=== PATIENT | male | born 1985 | race Two or more races ===

== ENCOUNTER 2016-05-14 14:01 | Inpatient (IN) | payer OTHER ==
[~2016-05-14] VITALS: Ht 172.7 cm; Wt 61.9 kg
[~2016-05-14 14:01] MED LIST: ANTIBIOTIC IV; BACI28.43 IV; BACL20TA PO; GABA800T2 PO; LEVO750T26 PO; OXYC5CAP4 PO; OXYC5TAB3 PO
[2016-05-14] MEDS ORDERED: SODIUM CHLORIDE FLUSH 10ML SYR IVF ONE (16:00)
[2016-05-14] MEDS ORDERED: CEFTRIAXONE PMX 1GM/50ML 50 ML IVPB ONE (16:00)
[2016-05-14 16:34] LABS: HEMOGLOBIN 14.2 g/dL (13.7-18.0)
[2016-05-14 16:43] LABS: ASPARTATE AMINO TRANSFERASE 31 U/L (15-37); BLOOD UREA NITROGEN 19 mg/dL (7-18)
[2016-05-14] MEDS ORDERED: CEFTRIAXONE PMX 1GM/50ML 50 ML ONE (17:09)
[2016-05-14] MEDS ORDERED: SODIUM CHLORIDE FLUSH 10ML SYR IVF PRN (17:30)
[2016-05-14] MEDS ORDERED: POLYETHYLENE GLYCOL 17 GM PACKET PO PRN (18:30)
[2016-05-14] MEDS ORDERED: ACETAMINOPHEN 325 MG TABLET PO PRN (18:30)
[2016-05-14] MEDS ORDERED: ENALAPRILAT 1.25 MG/ML, 2ML IVPush PRN (18:30)
[2016-05-14] MEDS ORDERED: VANCOMYCIN PER PHARMACY MC PRN (18:30)
[2016-05-14] MEDS ORDERED: ONDANSETRON 2MG/ML, 2ML IVP PRN (18:30)
[2016-05-14] MEDS ORDERED: BISACODYL 10 MG SUPP PR PRN (18:30)
[2016-05-14] MEDS ORDERED: VANCOMYCIN PMX 1GM/200ML 200 ML IV ONE (18:30)
[2016-05-14 19:03] LABS: C-REACTIVE PROTEIN, QUANT 1.3 mg/dL (0.02-0.49)
[2016-05-14] MEDS ORDERED: PIPERACILLIN/TAZO/PMX 3.375GM 50 ML ONE (20:04)
[2016-05-14] MEDS: PIPERACILLIN/TAZO/PMX 3.375GM 50 ML IV SCH (20:09)
[2016-05-14] MEDS ORDERED: PHARMACOKINETIC MONITORING MC PRN (21:00)
[2016-05-14] MEDS ORDERED: PHARMACOKINETIC CONSULTATION MC ONE (21:00)
[2016-05-14 21:18] VITALS: BP 100/54
[2016-05-14] MEDS: SODIUM CHLORIDE 0.9% 1,000 ML IV SCH (23:25)
[2016-05-14] MEDS: GABAPENTIN 400 MG CAPSULE PO SCH (23:26)
[2016-05-14] MEDS: BACLOFEN 10 MG TABLET PO SCH (23:26)
[2016-05-14] MEDS: VANCOMYCIN PMX 1GM/200ML 200 ML IV SCH (23:26)
[2016-05-14] MEDS: HEPARIN 5,000 UNITS/ML, 1ML SQ SCH (23:27)
[2016-05-15] MEDS: PIPERACILLIN/TAZO/PMX 3.375GM 50 ML IV SCH ×4 (02:08→20:08)
[2016-05-15 03:43] VITALS: BP 106/62
[2016-05-15 06:46] LABS: HEMOGLOBIN 13.6 g/dL (13.7-18.0)
[2016-05-15 06:59] LABS: ASPARTATE AMINO TRANSFERASE 21 U/L (15-37); BLOOD UREA NITROGEN 17 mg/dL (7-18)
[2016-05-15 07:26] VITALS: BP 103/55
[2016-05-15] MEDS: VANCOMYCIN PMX 1GM/200ML 200 ML IV SCH ×3 (07:44→23:11)
[2016-05-15] MEDS: HEPARIN 5,000 UNITS/ML, 1ML SQ SCH ×3 (07:45→22:56)
[2016-05-15] MEDS: GABAPENTIN 400 MG CAPSULE PO SCH ×3 (09:00→20:08)
[2016-05-15] MEDS: BACLOFEN 10 MG TABLET PO SCH ×3 (09:00→20:08)
[2016-05-15] MEDS: SENNA/DOCUSATE TABLET PO SCH (09:00)
[2016-05-15] MEDS ORDERED: LORazepam 2 MG/ML, 1ML IVPush ONE (10:00)
[2016-05-15] MEDS: SODIUM CHLORIDE 0.9% 1,000 ML IV SCH ×2 (11:06→20:08)
[2016-05-15 20:05] VITALS: BP 97/54
[2016-05-16 03:00] VITALS: BP 121/53
[2016-05-16] MEDS: PIPERACILLIN/TAZO/PMX 3.375GM 50 ML IV SCH ×4 (03:29→22:55)
[2016-05-16] MEDS: MORPHINE SULFATE 4 MG/ML, 1ML IVPush PRN (05:59)
[2016-05-16] MEDS: HEPARIN 5,000 UNITS/ML, 1ML SQ SCH ×3 (07:00→23:00)
[2016-05-16] MEDS: VANCOMYCIN PMX 1GM/200ML 200 ML IV SCH ×2 (07:51→14:49)
[2016-05-16] MEDS: SENNA/DOCUSATE TABLET PO SCH (07:54)
[2016-05-16 08:30] VITALS: BP 107/64
[2016-05-16] MEDS: GABAPENTIN 400 MG CAPSULE PO SCH ×3 (09:06→20:24)
[2016-05-16] MEDS: BACLOFEN 10 MG TABLET PO SCH ×3 (09:07→20:24)
[2016-05-16 13:54] VITALS: BP 119/56
[2016-05-16] MEDS: OXYcodone IR 5MG TABLET PO PRN (14:49)
[2016-05-16 19:30] VITALS: BP 125/72
[2016-05-17] MEDS: VANCOMYCIN PMX 1GM/200ML 200 ML IV SCH ×3 (00:02→16:16)
[2016-05-17 02:39] VITALS: BP 113/56
[2016-05-17] MEDS: OXYcodone IR 5MG TABLET PO PRN (02:44)
[2016-05-17] MEDS: PIPERACILLIN/TAZO/PMX 3.375GM 50 ML IV SCH ×3 (05:00→20:23)
[2016-05-17] MEDS: HEPARIN 5,000 UNITS/ML, 1ML SQ SCH ×2 (05:00→16:19)
[2016-05-17] MEDS: MORPHINE SULFATE 4 MG/ML, 1ML IVPush PRN (05:01)
[2016-05-17] MEDS: GABAPENTIN 400 MG CAPSULE PO SCH ×3 (07:23→21:22)
[2016-05-17] MEDS: BACLOFEN 10 MG TABLET PO SCH ×3 (07:23→21:22)
[2016-05-17] MEDS: SENNA/DOCUSATE TABLET PO SCH (07:24)
[2016-05-17 08:01] VITALS: BP 114/69
[2016-05-17] MEDS ORDERED: MIDAZOLAM 1 MG/ML, 5ML ONE (10:53)
[2016-05-17] MEDS ORDERED: FENTANYL PF 100 MCG/2ML ONE (10:53)
[2016-05-17] MEDS ORDERED: GADOBUTROL 7.5 MMOL/7.5 ML PFS ONE (13:27)
[2016-05-17 14:02] VITALS: BP 111/71
[2016-05-17] MEDS: MUPIROCIN OINT 2%, 22GM TP SCH ×3 (14:15→21:22)
[2016-05-17 20:00] VITALS: BP 100/60
[2016-05-18] MEDS: OXYcodone IR 5MG TABLET PO PRN ×2 (00:05→05:31)
[2016-05-18] MEDS: VANCOMYCIN PMX 1GM/200ML 200 ML IV SCH ×3 (00:05→16:45)
[2016-05-18] MEDS: HEPARIN 5,000 UNITS/ML, 1ML SQ SCH ×3 (00:06→16:44)
[2016-05-18 02:20] VITALS: BP 111/68
[2016-05-18] MEDS: PIPERACILLIN/TAZO/PMX 3.375GM 50 ML IV SCH ×4 (02:22→20:08)
[2016-05-18 07:51] VITALS: BP 122/83
[2016-05-18] MEDS: SENNA/DOCUSATE TABLET PO SCH (07:57)
[2016-05-18] MEDS: GABAPENTIN 400 MG CAPSULE PO SCH ×3 (08:01→20:09)
[2016-05-18] MEDS: BACLOFEN 10 MG TABLET PO SCH ×3 (08:01→20:09)
[2016-05-18] MEDS: MUPIROCIN OINT 2%, 22GM TP SCH ×3 (08:02→20:08)
[2016-05-18 13:47] VITALS: BP 138/81
[2016-05-19] MEDS: HEPARIN 5,000 UNITS/ML, 1ML SQ SCH ×3 (01:14→16:49)
[2016-05-19] MEDS: VANCOMYCIN PMX 1GM/200ML 200 ML IV SCH ×3 (01:15→18:44)
[2016-05-19 01:16] VITALS: BP 139/59
[2016-05-19] MEDS: PIPERACILLIN/TAZO/PMX 3.375GM 50 ML IV SCH ×4 (02:39→20:42)
[2016-05-19] MEDS: OXYcodone IR 5MG TABLET PO PRN (04:57)
[2016-05-19 07:21] VITALS: BP 118/77
[2016-05-19] MEDS: BACLOFEN 10 MG TABLET PO SCH ×3 (08:57→20:38)
[2016-05-19] MEDS: GABAPENTIN 400 MG CAPSULE PO SCH ×3 (08:58→20:38)
[2016-05-19] MEDS: SENNA/DOCUSATE TABLET PO SCH (09:00)
[2016-05-19] MEDS: LACTOBACILLUS CHEW TABLET PO SCH ×3 (10:21→20:38)
[2016-05-19] MEDS: MUPIROCIN OINT 2%, 22GM TP SCH ×3 (10:22→20:46)
[2016-05-19 14:15] VITALS: BP 132/85
[2016-05-19 19:33] VITALS: BP 143/78
[2016-05-20] MEDS: PIPERACILLIN/TAZO/PMX 3.375GM 50 ML IV SCH ×2 (01:09→08:19)
[2016-05-20] MEDS: HEPARIN 5,000 UNITS/ML, 1ML SQ SCH ×3 (01:10→17:12)
[2016-05-20 01:15] VITALS: BP 127/72
[2016-05-20] MEDS: VANCOMYCIN PMX 1GM/200ML 200 ML IV SCH ×2 (02:15→10:05)
[2016-05-20] MEDS: OXYcodone IR 5MG TABLET PO PRN (04:02)
[2016-05-20 07:48] VITALS: BP 118/69
[2016-05-20] MEDS: GABAPENTIN 400 MG CAPSULE PO SCH ×3 (08:20→21:55)
[2016-05-20] MEDS: BACLOFEN 10 MG TABLET PO SCH ×3 (08:20→21:55)
[2016-05-20] MEDS: LACTOBACILLUS CHEW TABLET PO SCH ×3 (08:20→21:55)
[2016-05-20] MEDS: MUPIROCIN OINT 2%, 22GM TP SCH ×3 (08:21→21:00)
[2016-05-20] MEDS: SENNA/DOCUSATE TABLET PO SCH (08:23)
[2016-05-20] MEDS ORDERED: CEFAZOLIN PMX 1GM/50ML 50 ML IV SCH (10:30)
[2016-05-20] MEDS ORDERED: CEFAZOLIN PMX 2GM/100ML 100 ML IV SCH (14:00)
[2016-05-20] MEDS: CEFAZOLIN PMX 2GM/50ML 50 ML IV SCH ×2 (14:46→21:55)
[2016-05-20 14:48] VITALS: BP 135/94
[2016-05-20 18:40] VITALS: BP 120/69
[2016-05-21] MEDS: HEPARIN 5,000 UNITS/ML, 1ML SQ SCH ×4 (01:08→22:08)
[2016-05-21] MEDS: CEFAZOLIN PMX 2GM/50ML 50 ML IV SCH ×3 (05:32→22:08)
[2016-05-21 05:35] VITALS: BP 117/74
[2016-05-21 07:26] VITALS: BP 125/73
[2016-05-21] MEDS: LACTOBACILLUS CHEW TABLET PO SCH ×3 (08:11→22:09)
[2016-05-21] MEDS: BACLOFEN 10 MG TABLET PO SCH ×3 (08:11→22:09)
[2016-05-21] MEDS: GABAPENTIN 400 MG CAPSULE PO SCH ×3 (08:11→22:09)
[2016-05-21] MEDS: SENNA/DOCUSATE TABLET PO SCH (08:12)
[2016-05-21] MEDS: MUPIROCIN OINT 2%, 22GM TP SCH ×3 (08:14→22:09)
[2016-05-21 14:26] VITALS: BP 119/84
[2016-05-21 21:07] VITALS: BP 116/69
[2016-05-22 01:31] VITALS: BP 129/87
[2016-05-22 04:58] LABS: HEMOGLOBIN 14.2 g/dL (13.7-18.0)
[2016-05-22 05:11] LABS: BLOOD UREA NITROGEN 15 mg/dL (7-18)
[2016-05-22 05:17] LABS: ASPARTATE AMINO TRANSFERASE 21 U/L (15-37)
[2016-05-22] MEDS: CEFAZOLIN PMX 2GM/50ML 50 ML IV SCH ×3 (05:38→20:49)
[2016-05-22 07:45] VITALS: BP 138/62
[2016-05-22] MEDS: LACTOBACILLUS CHEW TABLET PO SCH ×3 (07:54→20:48)
[2016-05-22] MEDS: BACLOFEN 10 MG TABLET PO SCH ×3 (07:54→20:48)
[2016-05-22] MEDS: SENNA/DOCUSATE TABLET PO SCH (07:55)
[2016-05-22] MEDS: GABAPENTIN 400 MG CAPSULE PO SCH ×3 (07:55→20:48)
[2016-05-22] MEDS: HEPARIN 5,000 UNITS/ML, 1ML SQ SCH ×3 (07:55→20:50)
[2016-05-22] MEDS: MUPIROCIN OINT 2%, 22GM TP SCH ×3 (07:55→20:56)
[2016-05-22 13:52] VITALS: BP 128/70
[2016-05-22 20:46] VITALS: BP 134/90
[2016-05-23 01:07] VITALS: BP 123/77
[2016-05-23] MEDS: HEPARIN 5,000 UNITS/ML, 1ML SQ SCH ×3 (06:13→23:19)
[2016-05-23] MEDS: CEFAZOLIN PMX 2GM/50ML 50 ML IV SCH ×2 (06:13→15:41)
[2016-05-23] MEDS: SENNA/DOCUSATE TABLET PO SCH (09:09)
[2016-05-23] MEDS: LACTOBACILLUS CHEW TABLET PO SCH ×3 (09:09→23:19)
[2016-05-23] MEDS: GABAPENTIN 400 MG CAPSULE PO SCH ×3 (09:10→23:19)
[2016-05-23] MEDS: BACLOFEN 10 MG TABLET PO SCH ×3 (09:10→23:19)
[2016-05-23 09:37] VITALS: BP 140/84
[2016-05-23] MEDS: MUPIROCIN OINT 2%, 22GM TP SCH ×3 (11:00→23:50)
[2016-05-23 16:40] VITALS: BP 129/74
[2016-05-23] MEDS ORDERED: ENALAPRILAT 1.25 MG/ML, 2ML IVPush PRN (18:29)
[2016-05-23 19:32] VITALS: BP 124/68
[2016-05-23] MEDS: ERTAPENEM 1 GM in SODIUM CHLORIDE 0.9% 50 ML IV SCH (20:25)
[2016-05-24 01:34] VITALS: BP 121/83
[2016-05-24 07:49] VITALS: BP 115/64
[2016-05-24] MEDS: SENNA/DOCUSATE TABLET PO SCH (09:16)
[2016-05-24] MEDS: BACLOFEN 10 MG TABLET PO SCH ×3 (09:17→20:35)
[2016-05-24] MEDS: GABAPENTIN 400 MG CAPSULE PO SCH ×3 (09:17→20:35)
[2016-05-24] MEDS: LACTOBACILLUS CHEW TABLET PO SCH ×3 (09:17→20:35)
[2016-05-24] MEDS: HEPARIN 5,000 UNITS/ML, 1ML SQ SCH ×2 (09:27→15:46)
[2016-05-24] MEDS: MUPIROCIN OINT 2%, 22GM TP SCH ×3 (09:28→20:35)
[2016-05-24 14:04] VITALS: BP 136/86
[2016-05-24 19:41] VITALS: BP 127/74
[2016-05-24] MEDS: ERTAPENEM 1 GM in SODIUM CHLORIDE 0.9% 50 ML IV SCH (20:34)
[2016-05-25] MEDS: HEPARIN 5,000 UNITS/ML, 1ML SQ SCH ×3 (00:49→16:12)
[2016-05-25 01:16] VITALS: BP 121/68
[2016-05-25 07:41] VITALS: BP 130/81
[2016-05-25] MEDS: MUPIROCIN OINT 2%, 22GM TP SCH ×2 (08:31→16:12)
[2016-05-25] MEDS: SENNA/DOCUSATE TABLET PO SCH (08:31)
[2016-05-25] MEDS: BACLOFEN 10 MG TABLET PO SCH ×2 (08:31→16:12)
[2016-05-25] MEDS: LACTOBACILLUS CHEW TABLET PO SCH ×2 (08:31→16:12)
[2016-05-25] MEDS: GABAPENTIN 400 MG CAPSULE PO SCH ×2 (08:31→16:12)
[2016-05-25 14:14] VITALS: BP 135/74
[2016-05-25] MEDS ORDERED: ACID1TAB7 PO (16:36)
[2016-05-25] MEDS ORDERED: ERTA1VIA IV (16:36)
[2016-05-25] MEDS: ERTAPENEM 1 GM in SODIUM CHLORIDE 0.9% 50 ML IV SCH (17:39)
== END 2016-05-25 19:45 | disposition home IV services (08) | DRG 540 ==
LOC: ED 16:41 → EDIP 17:18 → 3NE 20:25
PROC: 0T9B70Z Drainage of Bladder with Drainage Device, Via Natural or Artificial Opening (ICD-10-PCS; principal; 2016-05-14)
PROC: 02HV33Z Insertion of Infusion Device into Superior Vena Cava, Percutaneous Approach (ICD-10-PCS; 2016-05-23)
PROC: B5181ZA Fluoroscopy of Superior Vena Cava using Low Osmolar Contrast, Guidance (ICD-10-PCS; 2016-05-23)
DX: M86.172 Other acute osteomyelitis, left ankle and foot (principal); L03.116 Cellulitis of left lower limb; M86.171 Other acute osteomyelitis, right ankle and foot; L03.115 Cellulitis of right lower limb; G82.20 Paraplegia, unspecified; D63.8 Anemia in other chronic diseases classified elsewhere; L97.519 Non-pressure chronic ulcer of other part of right foot with unspecified severity; L97.529 Non-pressure chronic ulcer of other part of left foot with unspecified severity; Z89.421 Acquired absence of other right toe(s); Z86.14 Personal history of Methicillin resistant Staphylococcus aureus infection; B95.0 Streptococcus, group A, as the cause of diseases classified elsewhere; K52.9 Noninfective gastroenteritis and colitis, unspecified; B95.7 Other staphylococcus as the cause of diseases classified elsewhere; F17.210 Nicotine dependence, cigarettes, uncomplicated; F12.90 Cannabis use, unspecified, uncomplicated; Z22.321 Carrier or suspected carrier of Methicillin susceptible Staphylococcus aureus; Z91.19 Patient's noncompliance with other medical treatment and regimen; Z90.49 Acquired absence of other specified parts of digestive tract
CPT/HCPCS: 36415; 36569; 76937; 77001; 80053; 80061; 80202; 81001; 82565; 83036; 83605; 83735; 84439; 84443; 85025; 85651; 86140; 87040; 87070; 87077; 87086; 87147; 87186; 87205; 87324; 96365; 99156; 99157; A9585; J0690; J0696; J1335; J1644; J2250; J2543; J3010; J3370; C1751; J7030

== ENCOUNTER 2016-12-29 10:59 | Emergency (ER) | payer OTHER ==
[~2016-12-29] VITALS: Ht 172.7 cm; Wt 65.0 kg
[~2016-12-29 10:59] MED LIST changes: +ACID1TAB7 PO; +ERTA1VIA IV; +OXYC5CAP2 PO; -OXYC5CAP4 PO
[2016-12-29 11:00] VITALS: BP 123/75
[2016-12-29 11:54] LABS: HEMATOCRIT 44.3 % (39.2-51.8); HEMOGLOBIN 14.8 g/dL (13.7-18.0); WHITE BLOOD COUNT 7.9 x10^3/uL (3.4-10)
[2016-12-29 12:03] LABS: BLOOD UREA NITROGEN 14 mg/dL (7-18)
== END 2016-12-29 14:30 | disposition home or self-care (01) ==
LOC: ED 14:18
DX: S73.005A Unspecified dislocation of left hip, initial encounter (principal); M16.12 Unilateral primary osteoarthritis, left hip; Z99.3 Dependence on wheelchair; X58.XXXA Exposure to other specified factors, initial encounter; Y93.89 Activity, other specified; Y92.89 Other specified places as the place of occurrence of the external cause; Y99.8 Other external cause status
CPT/HCPCS: 36415; 72072; 72110; 72190; 80048; 82040; 85025; 85651; 86141; 99285

== ENCOUNTER 2018-02-15 13:18 | Emergency (ER) | payer MEDICARE, OTHER ==
[~2018-02-15] VITALS: Ht 172.7 cm; Wt 66.0 kg
[2018-02-15] MEDS ORDERED: ONDANSETRON 2MG/ML, 2ML ONE (13:58)
[2018-02-15] MEDS ORDERED: MORPHINE SULFATE 4 MG/ML, 1ML ONE (13:59)
[2018-02-15] MEDS ORDERED: ONDANSETRON 2MG/ML, 2ML IVPush ONE (14:00)
[2018-02-15] MEDS ORDERED: MORPHINE SULFATE 4 MG/ML, 1ML IVPush PRN (14:00)
[2018-02-15 14:15] LABS: BASOPHILS # (AUTO) 0.05 x10^3/uL (0-0.1); BASOPHILS % (AUTO) 1 % (0-1); EOSINOPHILS # (AUTO) 0.15 x10^3/uL (0-0.4); EOSINOPHILS % (AUTO) 2 % (1-7); LYMPHOCYTES # (AUTO) 1.84 x10^3/uL (1-3.4); LYMPHOCYTES % (AUTO) 28 % (22-44); MD NO; MEAN CORPUSCULAR HEMOGLOBIN 28.8 pg (27.5-34.5); MEAN CORPUSCULAR HGB CONC 32.9 g/dL (33.2-36.2); MEAN CORPUSCULAR VOLUME 87.3 fL (81-97); MEAN PLATELET VOLUME 9.2 fL (7.4-10.4); MONOCYTES # (AUTO) 0.43 x10^3/uL (0.2-0.8); MONOCYTES % (AUTO) 7 % (2-9); NEUTROPHILS # (AUTO) 4.04 x10^3/uL (1.8-6.8); NEUTROPHILS % (AUTO) 62 % (42-75); PLATELET COUNT 253 x10^3/uL (130-400); RED CELL DISTRIBUTION WIDTH 14.1 % (9.4-14.8)
[2018-02-15 14:22] LABS: ALANINE AMINOTRANSFERASE 27 U/L (12-78); ALBUMIN 3.6 g/dL (3.4-5.0); ANION GAP 9 mmol/L (5-15); C-REACTIVE PROTEIN, QUANT 0.55 mg/dL (0.02-0.49); CALCIUM 8.5 mg/dL (8.5-10.1); CHLORIDE 107 mmol/L (98-107); CREATININE 0.64 mg/dL (0.7-1.3)
[2018-02-15 14:25] LABS: ALKALINE PHOSPHATASE 89 U/L (45-117); BILIRUBIN,TOTAL 0.2 mg/dL (0.2-1.0); TOTAL PROTEIN 7.1 g/dL (6.4-8.2)
[2018-02-15 15:14] LABS: HCT (SEDRATE) 41.9 % (39.2-51.8)
[2018-02-15 15:28] LABS: MICROSCOPIC NOT IND
[2018-02-15 15:32] LABS: CULTURE INDICATED? NO
[2018-02-15 15:55] VITALS: BP 105/52
[2018-02-15] MEDS ORDERED: BACITRACIN ZINC OINT 500U/GM, 0.9 GM ONE (16:17)
== END 2018-02-15 17:17 | disposition home or self-care (01) ==
LOC: ED 17:10
DX: L08.89 Other specified local infections of the skin and subcutaneous tissue (principal); Z90.49 Acquired absence of other specified parts of digestive tract; Z86.14 Personal history of Methicillin resistant Staphylococcus aureus infection
CPT/HCPCS: 36415; 73630; 80053; 81003; 83605; 84145; 85025; 85651; 86140; 87040; 96374; 96375; 99284; J2405

== ENCOUNTER 2018-04-18 14:05 | Outpatient (CLI) | payer MEDICARE ==
[~2018-04-18 14:05] MED LIST changes: +CIPR750T PO; -GABA800T2 PO; +GABA800T5 PO; +IBUP-1222 PO; +RIFA300C3 PO; +SULF1TAB24 PO
== END 2018-04-18 23:59 | disposition home or self-care (01) ==
LOC: WOUND 14:05
PROVIDERS: ATTEND Nurse Practitioner Family
DX: L97.522 Non-pressure chronic ulcer of other part of left foot with fat layer exposed (principal); M86.072 Acute hematogenous osteomyelitis, left ankle and foot; M86.271 Subacute osteomyelitis, right ankle and foot; A49.02 Methicillin resistant Staphylococcus aureus infection, unspecified site; F12.10 Cannabis abuse, uncomplicated; G82.20 Paraplegia, unspecified; F17.210 Nicotine dependence, cigarettes, uncomplicated; M86.671 Other chronic osteomyelitis, right ankle and foot; Z89.412 Acquired absence of left great toe; Z90.49 Acquired absence of other specified parts of digestive tract
CPT/HCPCS: 97597; 97598; 99215

== ENCOUNTER 2018-05-05 13:04 | Outpatient (CLI) | payer MEDICARE | END 2018-05-05 23:59 | disposition home or self-care (01) | LOC: WOUND 13:04 | PROVIDERS: ATTEND Family Medicine | DX: L97.512 Non-pressure chronic ulcer of other part of right foot with fat layer exposed (principal); L97.522 Non-pressure chronic ulcer of other part of left foot with fat layer exposed; L97.421 Non-pressure chronic ulcer of left heel and midfoot limited to breakdown of skin; M86.072 Acute hematogenous osteomyelitis, left ankle and foot; M86.671 Other chronic osteomyelitis, right ankle and foot; A49.02 Methicillin resistant Staphylococcus aureus infection, unspecified site; L84 Corns and callosities; F12.10 Cannabis abuse, uncomplicated; G82.20 Paraplegia, unspecified; F17.210 Nicotine dependence, cigarettes, uncomplicated; Z90.49 Acquired absence of other specified parts of digestive tract; Z89.421 Acquired absence of other right toe(s); Z89.412 Acquired absence of left great toe | CPT/HCPCS: 97597 ==

== ENCOUNTER → 2018-05-12 | Outpatient (CLI) | payer MEDICARE | END | disposition home or self-care (01) | LOC: WOUND 14:00 | PROVIDERS: ATTEND Family Medicine | DX: L97.515 Non-pressure chronic ulcer of other part of right foot with muscle involvement without evidence of necrosis (principal); L97.525 Non-pressure chronic ulcer of other part of left foot with muscle involvement without evidence of necrosis; A49.02 Methicillin resistant Staphylococcus aureus infection, unspecified site; M86.271 Subacute osteomyelitis, right ankle and foot; M86.072 Acute hematogenous osteomyelitis, left ankle and foot; L84 Corns and callosities; G82.20 Paraplegia, unspecified; F12.10 Cannabis abuse, uncomplicated; F17.210 Nicotine dependence, cigarettes, uncomplicated; M86.671 Other chronic osteomyelitis, right ankle and foot; Z89.412 Acquired absence of left great toe; Z89.421 Acquired absence of other right toe(s); Z90.49 Acquired absence of other specified parts of digestive tract | CPT/HCPCS: 11043; 11046 ==

== ENCOUNTER → 2018-05-19 | Outpatient (CLI) | payer MEDICARE | END | disposition home or self-care (01) | LOC: WOUND 13:03 | PROVIDERS: ATTEND Family Medicine | DX: L97.525 Non-pressure chronic ulcer of other part of left foot with muscle involvement without evidence of necrosis (principal); L97.512 Non-pressure chronic ulcer of other part of right foot with fat layer exposed; M86.072 Acute hematogenous osteomyelitis, left ankle and foot; M86.271 Subacute osteomyelitis, right ankle and foot; A49.02 Methicillin resistant Staphylococcus aureus infection, unspecified site; L84 Corns and callosities; G82.20 Paraplegia, unspecified; F12.10 Cannabis abuse, uncomplicated; F17.210 Nicotine dependence, cigarettes, uncomplicated; Z89.412 Acquired absence of left great toe; Z89.421 Acquired absence of other right toe(s); Z90.49 Acquired absence of other specified parts of digestive tract | CPT/HCPCS: 97597 ==

== ENCOUNTER 2018-05-26 14:00 | Outpatient (CLI) | payer MEDICARE | END 2018-05-26 23:59 | disposition home or self-care (01) | LOC: WOUND 14:00 | PROVIDERS: ATTEND Family Medicine | DX: L97.525 Non-pressure chronic ulcer of other part of left foot with muscle involvement without evidence of necrosis (principal); L97.512 Non-pressure chronic ulcer of other part of right foot with fat layer exposed; A49.02 Methicillin resistant Staphylococcus aureus infection, unspecified site; M86.072 Acute hematogenous osteomyelitis, left ankle and foot; M86.271 Subacute osteomyelitis, right ankle and foot; L84 Corns and callosities; G82.20 Paraplegia, unspecified; M86.171 Other acute osteomyelitis, right ankle and foot; F17.210 Nicotine dependence, cigarettes, uncomplicated; Z89.412 Acquired absence of left great toe; Z89.421 Acquired absence of other right toe(s); Z90.49 Acquired absence of other specified parts of digestive tract | CPT/HCPCS: 97597 ==

== ENCOUNTER 2018-06-02 14:12 | Outpatient (CLI) | payer MEDICARE | END 2018-06-02 23:59 | disposition home or self-care (01) | LOC: WOUND 14:12 | PROVIDERS: ATTEND Family Medicine | DX: L97.525 Non-pressure chronic ulcer of other part of left foot with muscle involvement without evidence of necrosis (principal); L97.512 Non-pressure chronic ulcer of other part of right foot with fat layer exposed; M86.072 Acute hematogenous osteomyelitis, left ankle and foot; M86.271 Subacute osteomyelitis, right ankle and foot; A49.02 Methicillin resistant Staphylococcus aureus infection, unspecified site; L84 Corns and callosities; G82.20 Paraplegia, unspecified; M86.671 Other chronic osteomyelitis, right ankle and foot; F12.10 Cannabis abuse, uncomplicated; F17.210 Nicotine dependence, cigarettes, uncomplicated; Z89.412 Acquired absence of left great toe; Z89.421 Acquired absence of other right toe(s); Z90.49 Acquired absence of other specified parts of digestive tract | CPT/HCPCS: 11043; 97597 ==

== ENCOUNTER → 2018-06-09 | Outpatient (CLI) | payer MEDICARE | END | disposition home or self-care (01) | LOC: WOUND 13:50 | PROVIDERS: ATTEND Family Medicine | DX: L97.525 Non-pressure chronic ulcer of other part of left foot with muscle involvement without evidence of necrosis (principal); L97.512 Non-pressure chronic ulcer of other part of right foot with fat layer exposed; M86.072 Acute hematogenous osteomyelitis, left ankle and foot; M86.271 Subacute osteomyelitis, right ankle and foot; A49.02 Methicillin resistant Staphylococcus aureus infection, unspecified site; L84 Corns and callosities; G82.20 Paraplegia, unspecified; M86.171 Other acute osteomyelitis, right ankle and foot; F12.10 Cannabis abuse, uncomplicated; F17.210 Nicotine dependence, cigarettes, uncomplicated; Z89.421 Acquired absence of other right toe(s); Z89.412 Acquired absence of left great toe; Z90.49 Acquired absence of other specified parts of digestive tract | CPT/HCPCS: 97597 ==

== ENCOUNTER → 2018-06-16 | Outpatient (CLI) | payer MEDICARE | END | disposition home or self-care (01) | LOC: WOUND 15:03 | PROVIDERS: ATTEND Family Medicine | DX: Z02.9 Encounter for administrative examinations, unspecified (principal) ==

== ENCOUNTER → 2018-06-23 | Outpatient (CLI) | payer MEDICARE | END | disposition home or self-care (01) | LOC: WOUND 14:44 | PROVIDERS: ATTEND Family Medicine | DX: L97.512 Non-pressure chronic ulcer of other part of right foot with fat layer exposed (principal); L97.522 Non-pressure chronic ulcer of other part of left foot with fat layer exposed; M86.072 Acute hematogenous osteomyelitis, left ankle and foot; M86.271 Subacute osteomyelitis, right ankle and foot; A49.02 Methicillin resistant Staphylococcus aureus infection, unspecified site; L84 Corns and callosities; G82.20 Paraplegia, unspecified; M86.171 Other acute osteomyelitis, right ankle and foot; F12.10 Cannabis abuse, uncomplicated; F17.210 Nicotine dependence, cigarettes, uncomplicated; Z89.421 Acquired absence of other right toe(s); Z89.412 Acquired absence of left great toe; Z90.49 Acquired absence of other specified parts of digestive tract | CPT/HCPCS: 97597 ==

== ENCOUNTER 2018-06-30 13:57 | Outpatient (CLI) | payer MEDICARE | END 2018-06-30 23:59 | disposition home or self-care (01) | LOC: WOUND 13:57 | PROVIDERS: ATTEND Family Medicine | DX: L97.525 Non-pressure chronic ulcer of other part of left foot with muscle involvement without evidence of necrosis (principal); L97.512 Non-pressure chronic ulcer of other part of right foot with fat layer exposed; M86.072 Acute hematogenous osteomyelitis, left ankle and foot; M86.271 Subacute osteomyelitis, right ankle and foot; A49.02 Methicillin resistant Staphylococcus aureus infection, unspecified site; M86.171 Other acute osteomyelitis, right ankle and foot; L84 Corns and callosities; G82.20 Paraplegia, unspecified; F12.10 Cannabis abuse, uncomplicated; F17.210 Nicotine dependence, cigarettes, uncomplicated; Z89.412 Acquired absence of left great toe; Z89.422 Acquired absence of other left toe(s); Z90.49 Acquired absence of other specified parts of digestive tract | CPT/HCPCS: 97597 ==

== ENCOUNTER 2018-07-07 13:20 | Outpatient (CLI) | payer MEDICARE | END 2018-07-07 23:59 | disposition home or self-care (01) | LOC: WOUND 13:20 | PROVIDERS: ATTEND Family Medicine | DX: L97.522 Non-pressure chronic ulcer of other part of left foot with fat layer exposed (principal); L97.512 Non-pressure chronic ulcer of other part of right foot with fat layer exposed; M86.072 Acute hematogenous osteomyelitis, left ankle and foot; M86.271 Subacute osteomyelitis, right ankle and foot; A49.02 Methicillin resistant Staphylococcus aureus infection, unspecified site; M86.171 Other acute osteomyelitis, right ankle and foot; L84 Corns and callosities; G82.20 Paraplegia, unspecified; F12.10 Cannabis abuse, uncomplicated; F17.210 Nicotine dependence, cigarettes, uncomplicated; Z89.412 Acquired absence of left great toe; Z89.422 Acquired absence of other left toe(s); Z90.49 Acquired absence of other specified parts of digestive tract | CPT/HCPCS: 97597 ==

== ENCOUNTER → 2018-07-21 | Outpatient (CLI) | payer MEDICARE | END | disposition home or self-care (01) | LOC: WOUND 13:06 | PROVIDERS: ATTEND Family Medicine | DX: L97.525 Non-pressure chronic ulcer of other part of left foot with muscle involvement without evidence of necrosis (principal); L97.512 Non-pressure chronic ulcer of other part of right foot with fat layer exposed; A49.02 Methicillin resistant Staphylococcus aureus infection, unspecified site; M86.072 Acute hematogenous osteomyelitis, left ankle and foot; M86.271 Subacute osteomyelitis, right ankle and foot; L84 Corns and callosities; G82.20 Paraplegia, unspecified; M86.9 Osteomyelitis, unspecified; F17.210 Nicotine dependence, cigarettes, uncomplicated; Z89.412 Acquired absence of left great toe; Z89.422 Acquired absence of other left toe(s); Z90.49 Acquired absence of other specified parts of digestive tract; Z89.421 Acquired absence of other right toe(s) | CPT/HCPCS: 97597 ==

== ENCOUNTER → 2018-08-04 | Outpatient (CLI) | payer MEDICARE | END | disposition home or self-care (01) | LOC: WOUND 10:49 | PROVIDERS: ATTEND Family Medicine | DX: L97.512 Non-pressure chronic ulcer of other part of right foot with fat layer exposed (principal); L97.522 Non-pressure chronic ulcer of other part of left foot with fat layer exposed; L89.519 Pressure ulcer of right ankle, unspecified stage; L97.311 Non-pressure chronic ulcer of right ankle limited to breakdown of skin; A49.02 Methicillin resistant Staphylococcus aureus infection, unspecified site; M86.072 Acute hematogenous osteomyelitis, left ankle and foot; M86.271 Subacute osteomyelitis, right ankle and foot; M86.171 Other acute osteomyelitis, right ankle and foot; G82.20 Paraplegia, unspecified; F12.10 Cannabis abuse, uncomplicated; F17.210 Nicotine dependence, cigarettes, uncomplicated; Z89.412 Acquired absence of left great toe; Z89.422 Acquired absence of other left toe(s); Z89.421 Acquired absence of other right toe(s); Z90.49 Acquired absence of other specified parts of digestive tract | CPT/HCPCS: 97597 ==

== ENCOUNTER → 2018-08-18 | Outpatient (CLI) | payer MEDICARE | END | disposition home or self-care (01) | LOC: WOUND 10:54 | PROVIDERS: ATTEND Internal Medicine Cardiovascular Disease | DX: L97.512 Non-pressure chronic ulcer of other part of right foot with fat layer exposed (principal); L97.522 Non-pressure chronic ulcer of other part of left foot with fat layer exposed; L97.311 Non-pressure chronic ulcer of right ankle limited to breakdown of skin; M86.271 Subacute osteomyelitis, right ankle and foot; M86.072 Acute hematogenous osteomyelitis, left ankle and foot; A49.02 Methicillin resistant Staphylococcus aureus infection, unspecified site; M86.171 Other acute osteomyelitis, right ankle and foot; G82.20 Paraplegia, unspecified; F12.10 Cannabis abuse, uncomplicated; F17.210 Nicotine dependence, cigarettes, uncomplicated; Z89.412 Acquired absence of left great toe; Z89.422 Acquired absence of other left toe(s); Z89.421 Acquired absence of other right toe(s); Z90.49 Acquired absence of other specified parts of digestive tract | CPT/HCPCS: G0463 ==

== ENCOUNTER → 2018-08-25 | Outpatient (CLI) | payer MEDICARE | END | disposition home or self-care (01) | LOC: WOUND 13:11 | PROVIDERS: ATTEND Family Medicine | DX: L97.512 Non-pressure chronic ulcer of other part of right foot with fat layer exposed (principal); L97.522 Non-pressure chronic ulcer of other part of left foot with fat layer exposed; L97.311 Non-pressure chronic ulcer of right ankle limited to breakdown of skin; M86.271 Subacute osteomyelitis, right ankle and foot; M86.072 Acute hematogenous osteomyelitis, left ankle and foot; A49.02 Methicillin resistant Staphylococcus aureus infection, unspecified site; M86.171 Other acute osteomyelitis, right ankle and foot; G82.20 Paraplegia, unspecified; F12.10 Cannabis abuse, uncomplicated; F17.210 Nicotine dependence, cigarettes, uncomplicated; Z89.412 Acquired absence of left great toe; Z89.422 Acquired absence of other left toe(s); Z89.421 Acquired absence of other right toe(s); Z90.49 Acquired absence of other specified parts of digestive tract | CPT/HCPCS: 97597 ==

== ENCOUNTER → 2018-09-01 | Outpatient (CLI) | payer MEDICARE | END | disposition home or self-care (01) | LOC: WOUND 09:15 | PROVIDERS: ATTEND Family Medicine | DX: L97.512 Non-pressure chronic ulcer of other part of right foot with fat layer exposed (principal); L97.522 Non-pressure chronic ulcer of other part of left foot with fat layer exposed; L97.311 Non-pressure chronic ulcer of right ankle limited to breakdown of skin; M86.271 Subacute osteomyelitis, right ankle and foot; M86.072 Acute hematogenous osteomyelitis, left ankle and foot; A49.02 Methicillin resistant Staphylococcus aureus infection, unspecified site; M86.171 Other acute osteomyelitis, right ankle and foot; G82.20 Paraplegia, unspecified; F12.10 Cannabis abuse, uncomplicated; F17.210 Nicotine dependence, cigarettes, uncomplicated; Z89.412 Acquired absence of left great toe; Z89.422 Acquired absence of other left toe(s); Z89.421 Acquired absence of other right toe(s); Z90.49 Acquired absence of other specified parts of digestive tract | CPT/HCPCS: G0463 ==

== ENCOUNTER → 2018-09-15 | Outpatient (CLI) | payer MEDICARE | END | disposition home or self-care (01) | LOC: WOUND 10:15 | PROVIDERS: ATTEND Family Medicine | DX: L97.512 Non-pressure chronic ulcer of other part of right foot with fat layer exposed (principal); L97.522 Non-pressure chronic ulcer of other part of left foot with fat layer exposed; L97.311 Non-pressure chronic ulcer of right ankle limited to breakdown of skin; M86.072 Acute hematogenous osteomyelitis, left ankle and foot; A49.02 Methicillin resistant Staphylococcus aureus infection, unspecified site; M86.171 Other acute osteomyelitis, right ankle and foot; G82.20 Paraplegia, unspecified; F12.10 Cannabis abuse, uncomplicated; F17.210 Nicotine dependence, cigarettes, uncomplicated; Z89.412 Acquired absence of left great toe; Z89.422 Acquired absence of other left toe(s); Z89.421 Acquired absence of other right toe(s); Z90.49 Acquired absence of other specified parts of digestive tract | CPT/HCPCS: 97597 ==

== ENCOUNTER 2018-09-22 10:34 | Outpatient (CLI) | payer MEDICARE | END 2018-09-22 23:59 | disposition home or self-care (01) | LOC: WOUND 10:34 | PROVIDERS: ATTEND Family Medicine | DX: L97.512 Non-pressure chronic ulcer of other part of right foot with fat layer exposed (principal); L97.522 Non-pressure chronic ulcer of other part of left foot with fat layer exposed; M86.072 Acute hematogenous osteomyelitis, left ankle and foot; A49.02 Methicillin resistant Staphylococcus aureus infection, unspecified site; M86.171 Other acute osteomyelitis, right ankle and foot; G82.20 Paraplegia, unspecified; F12.10 Cannabis abuse, uncomplicated; F17.210 Nicotine dependence, cigarettes, uncomplicated; Z89.412 Acquired absence of left great toe; Z89.422 Acquired absence of other left toe(s); Z89.421 Acquired absence of other right toe(s); Z90.49 Acquired absence of other specified parts of digestive tract | CPT/HCPCS: G0463 ==

== ENCOUNTER 2018-12-26 09:08 | Outpatient (CLI) | payer MEDICARE | END 2018-12-26 23:59 | disposition home or self-care (01) | LOC: WOUND 09:08 | PROVIDERS: ATTEND Nurse Practitioner Family | DX: L89.522 Pressure ulcer of left ankle, stage 2 (principal); L97.322 Non-pressure chronic ulcer of left ankle with fat layer exposed; L97.522 Non-pressure chronic ulcer of other part of left foot with fat layer exposed; M86.072 Acute hematogenous osteomyelitis, left ankle and foot; A49.02 Methicillin resistant Staphylococcus aureus infection, unspecified site; M86.171 Other acute osteomyelitis, right ankle and foot; G82.20 Paraplegia, unspecified; F12.10 Cannabis abuse, uncomplicated; F17.210 Nicotine dependence, cigarettes, uncomplicated; Z89.412 Acquired absence of left great toe; Z89.422 Acquired absence of other left toe(s); Z89.421 Acquired absence of other right toe(s); Z90.49 Acquired absence of other specified parts of digestive tract | CPT/HCPCS: 97597 ==

== ENCOUNTER 2019-01-02 09:56 | Outpatient (CLI) | payer MEDICARE | END 2019-01-02 23:59 | disposition home or self-care (01) | LOC: WOUND 09:56 | PROVIDERS: ATTEND Nurse Practitioner Family | DX: T81.33XA Disruption of traumatic injury wound repair, initial encounter (principal); L89.522 Pressure ulcer of left ankle, stage 2; L89.896 Pressure-induced deep tissue damage of other site; L97.322 Non-pressure chronic ulcer of left ankle with fat layer exposed; L97.521 Non-pressure chronic ulcer of other part of left foot limited to breakdown of skin; L97.511 Non-pressure chronic ulcer of other part of right foot limited to breakdown of skin; L97.311 Non-pressure chronic ulcer of right ankle limited to breakdown of skin; M86.072 Acute hematogenous osteomyelitis, left ankle and foot; M86.171 Other acute osteomyelitis, right ankle and foot; M86.672 Other chronic osteomyelitis, left ankle and foot; G82.20 Paraplegia, unspecified; F12.10 Cannabis abuse, uncomplicated; F32.9 Major depressive disorder, single episode, unspecified; F17.210 Nicotine dependence, cigarettes, uncomplicated; Z89.412 Acquired absence of left great toe; Z89.422 Acquired absence of other left toe(s); Z89.421 Acquired absence of other right toe(s); Z90.49 Acquired absence of other specified parts of digestive tract; Z86.14 Personal history of Methicillin resistant Staphylococcus aureus infection; Y83.8 Other surgical procedures as the cause of abnormal reaction of the patient, or of later complication, without mention of misadventure at the time of the procedure; Y92.89 Other specified places as the place of occurrence of the external cause | CPT/HCPCS: 11042; 97597 ==

== ENCOUNTER 2019-01-23 10:51 | Outpatient (CLI) | payer MEDICARE | END 2019-01-23 23:59 | disposition home or self-care (01) | LOC: WOUND 10:51 | PROVIDERS: ATTEND Nurse Practitioner Family | DX: T81.33XD Disruption of traumatic injury wound repair, subsequent encounter (principal); L89.522 Pressure ulcer of left ankle, stage 2; L89.896 Pressure-induced deep tissue damage of other site; L97.511 Non-pressure chronic ulcer of other part of right foot limited to breakdown of skin; L97.521 Non-pressure chronic ulcer of other part of left foot limited to breakdown of skin; L97.321 Non-pressure chronic ulcer of left ankle limited to breakdown of skin; L97.311 Non-pressure chronic ulcer of right ankle limited to breakdown of skin; M86.072 Acute hematogenous osteomyelitis, left ankle and foot; M86.171 Other acute osteomyelitis, right ankle and foot; G82.20 Paraplegia, unspecified; F12.10 Cannabis abuse, uncomplicated; F32.9 Major depressive disorder, single episode, unspecified; F17.210 Nicotine dependence, cigarettes, uncomplicated; Z86.14 Personal history of Methicillin resistant Staphylococcus aureus infection; Z89.412 Acquired absence of left great toe; Z89.422 Acquired absence of other left toe(s); Z89.421 Acquired absence of other right toe(s); Z90.49 Acquired absence of other specified parts of digestive tract | CPT/HCPCS: 97597 ==

== ENCOUNTER → 2019-01-30 | Outpatient (CLI) | payer MEDICARE, MEDICAID | END | disposition home or self-care (01) | LOC: WOUND 11:06 | PROVIDERS: ATTEND Nurse Practitioner Family | DX: T81.33XD Disruption of traumatic injury wound repair, subsequent encounter (principal); L89.522 Pressure ulcer of left ankle, stage 2; L89.896 Pressure-induced deep tissue damage of other site; L97.511 Non-pressure chronic ulcer of other part of right foot limited to breakdown of skin; L97.521 Non-pressure chronic ulcer of other part of left foot limited to breakdown of skin; L97.321 Non-pressure chronic ulcer of left ankle limited to breakdown of skin; L97.311 Non-pressure chronic ulcer of right ankle limited to breakdown of skin; M86.072 Acute hematogenous osteomyelitis, left ankle and foot; M86.171 Other acute osteomyelitis, right ankle and foot; G82.20 Paraplegia, unspecified; F12.10 Cannabis abuse, uncomplicated; F32.9 Major depressive disorder, single episode, unspecified; F17.210 Nicotine dependence, cigarettes, uncomplicated; Z86.14 Personal history of Methicillin resistant Staphylococcus aureus infection; Z89.412 Acquired absence of left great toe; Z89.422 Acquired absence of other left toe(s); Z89.421 Acquired absence of other right toe(s); Z90.49 Acquired absence of other specified parts of digestive tract | CPT/HCPCS: 97597 ==

== ENCOUNTER 2019-02-06 13:25 | Outpatient (CLI) | payer MEDICAID, MEDICARE | END 2019-02-06 23:59 | disposition home or self-care (01) | LOC: WOUND 13:25 | PROVIDERS: ATTEND Nurse Practitioner Family | DX: T81.33XD Disruption of traumatic injury wound repair, subsequent encounter (principal); L89.522 Pressure ulcer of left ankle, stage 2; L89.896 Pressure-induced deep tissue damage of other site; L97.511 Non-pressure chronic ulcer of other part of right foot limited to breakdown of skin; L97.521 Non-pressure chronic ulcer of other part of left foot limited to breakdown of skin; L97.321 Non-pressure chronic ulcer of left ankle limited to breakdown of skin; L97.311 Non-pressure chronic ulcer of right ankle limited to breakdown of skin; M86.072 Acute hematogenous osteomyelitis, left ankle and foot; M86.171 Other acute osteomyelitis, right ankle and foot; G82.20 Paraplegia, unspecified; F12.10 Cannabis abuse, uncomplicated; F32.9 Major depressive disorder, single episode, unspecified; F17.210 Nicotine dependence, cigarettes, uncomplicated; Z86.14 Personal history of Methicillin resistant Staphylococcus aureus infection; Z89.412 Acquired absence of left great toe; Z89.422 Acquired absence of other left toe(s); Z89.421 Acquired absence of other right toe(s); Z90.49 Acquired absence of other specified parts of digestive tract | CPT/HCPCS: 97597 ==

== ENCOUNTER 2019-02-13 11:52 | Inpatient (IN) | payer MEDICARE ==
[~2019-02-13] VITALS: Ht 172.7 cm; Wt 58.8 kg
[2019-02-13] MEDS ORDERED: SODIUM CHLORIDE FLUSH 10ML SYR IVF ONE (12:30)
--- NOTE | 2019-02-13 13:04 | NUR ---
PARAPLEGIC/ NEEDS TO BE ON STRETCHER FOR XRAYS
[2019-02-13 13:05] LABS: BASOPHILS # (AUTO) 0.05 x10^3/uL (0-0.1); BASOPHILS % (AUTO) 1 % (0-1); EOSINOPHILS # (AUTO) 0.31 x10^3/uL (0-0.4); EOSINOPHILS % (AUTO) 5 % (1-7); LYMPHOCYTES # (AUTO) 2.03 x10^3/uL (1-3.4); LYMPHOCYTES % (AUTO) 32 % (22-44); MD NO; MEAN CORPUSCULAR HEMOGLOBIN 29.8 pg (27.5-34.5); MEAN CORPUSCULAR HGB CONC 32.5 g/dL (33.2-36.2); MEAN CORPUSCULAR VOLUME 91.6 fL (81-97); MEAN PLATELET VOLUME 9.5 fL (7.4-10.4); MONOCYTES # (AUTO) 0.43 x10^3/uL (0.2-0.8); MONOCYTES % (AUTO) 7 % (2-9); NEUTROPHILS # (AUTO) 3.53 x10^3/uL (1.8-6.8); NEUTROPHILS % (AUTO) 56 % (42-75); PLATELET COUNT 258 x10^3/uL (130-400); RED BLOOD COUNT 5.12 x10^6/uL (4.38-5.82); RED CELL DISTRIBUTION WIDTH 14.6 % (9.4-14.8)
[2019-02-13 13:15] LABS: ALBUMIN 3.8 g/dL (3.4-5.0); ANION GAP 3 mmol/L (5-15); CALCIUM 9.2 mg/dL (8.5-10.1); CHLORIDE 108 mmol/L (98-107)
[2019-02-13 13:21] LABS: ALANINE AMINOTRANSFERASE 90 U/L (12-78); ALKALINE PHOSPHATASE 111 U/L (45-117); BILIRUBIN,TOTAL 0.2 mg/dL (0.2-1.0); CREATININE 0.74 mg/dL (0.7-1.3); TOTAL PROTEIN 7.6 g/dL (6.4-8.2)
--- NOTE | 2019-02-13 14:09 | NUR ---
REPORT RECEIVED FROM CARLOS FRYE. PLAN OF CARE DISCUSSED
--- NOTE | 2019-02-13 14:56 | NUR ---
PATIENT COMPLAINING OF 10/10 PAIN TO ANKLES. EDUCATED PATIENT NEED FOR IMAGING. PATIENT HAS URINAL AT BEDSIDE, VSS AT THIS TIME, CALL LIGHT IN REACH, DENIES FURTHER NEEDS AT THIS TIME.
--- NOTE | 2019-02-13 15:23 | NUR ---
PATIENT GIVEN JUICE FOR LOW BLOOD SUGAR.
[2019-02-13] MEDS ORDERED: SODIUM CHLORIDE 0.9% 1,000 ML IV SCH (15:34)
--- NOTE | 2019-02-13 15:51 | NUR ---
IV INSERTED, WAITING FOR BED ASSIGNMENT. PATIENT RESTING ON GURNEY, VSS, NAD, CALL LIGHT IN REACH, DENIES NEEDS AT THIS TIME
[2019-02-13] MEDS ORDERED: KETOROLAC 30 MG/1 ML IV PRN (16:00)
[2019-02-13] MEDS ORDERED: VANCOMYCIN PER PHARMACY MC PRN (16:00)
[2019-02-13] MEDS ORDERED: LABETALOL 5MG/ML, 20ML IVPush PRN (16:00)
[2019-02-13] MEDS ORDERED: NICOTINE 14MG/24 HR PATCH.TD24 TD ONE (16:00)
[2019-02-13] MEDS ORDERED: ACETAMINOPHEN 325 MG TABLET PO PRN (16:00)
[2019-02-13] MEDS ORDERED: hydrALAzine 20 MG/ML, 1ML IVPush PRN (16:00)
[2019-02-13] MEDS ORDERED: PROMETHAZINE 25 MG/ML, 1ML IM PRN (16:00)
[2019-02-13] MEDS ORDERED: morphine SULFATE 10 MG/ML, 1ML IVPush PRN (16:00)
[2019-02-13] MEDS ORDERED: ONDANSETRON 2MG/ML, 2ML IVPush PRN (16:00)
--- NOTE | 2019-02-13 16:20 | NUR ---
PT IN IMAGING
--- NOTE | 2019-02-13 16:44 | NUR ---
ATTEMPTED TO CALL REPORT. RN ON 4NE SAID SHE WOULD CALL BACK WHEN PRIMARY RN TO ASSUME CARE IS AVAILABLE
[2019-02-13 16:46] LABS: HCT (SEDRATE) 46.9 % (39.2-51.8)
[2019-02-13] MEDS ORDERED: GADOTERATE 7.5 MMOL/15 ML SYR ONE (16:49)
--- NOTE | 2019-02-13 16:55 | NUR ---
REPORT GIVEN TO CARLOS RODRIGUEZ. PLAN OF CARE DISCUSSED.
--- NOTE | 2019-02-13 16:57 | NUR ---
PATIENT BACK FROM IMAGING. TRANSFERRING UP TO FLOOR
[2019-02-13] MEDS ORDERED: PHARMACOKINETIC MONITORING MC PRN (17:30)
[2019-02-13] MEDS ORDERED: PHARMACOKINETIC CONSULTATION MC ONE (17:30)
[2019-02-13 17:51] VITALS: BP 113/70
[2019-02-13] MEDS: HEPARIN 5,000 UNITS/ML, 1ML SQ SCH (18:03)
[2019-02-13] MEDS: AMPICILLIN/SULBACTAM 1,500 MG in SODIUM CHLORIDE 0.9% 50 ML IV SCH (18:03)
[2019-02-13 18:15] VITALS: BP 113/70
[2019-02-13 19:12] VITALS: BP 121/70
[2019-02-13] MEDS: VANCOMYCIN 1,300 MG in SODIUM CHLORIDE 0.9% 250 ML IV SCH (19:15)
[2019-02-13] MEDS: POTASSIUM CHLORIDE 10 MEQ in D5%-0.45% NACL 1,000 ML IV SCH (21:15)
[2019-02-14] MEDS: AMPICILLIN/SULBACTAM 1,500 MG in SODIUM CHLORIDE 0.9% 50 ML IV SCH ×4 (00:06→18:03)
[2019-02-14 00:31] VITALS: BP 107/68
[2019-02-14] MEDS: HEPARIN 5,000 UNITS/ML, 1ML SQ SCH ×3 (02:00→17:27)
[2019-02-14 06:19] LABS: BASOPHILS # (AUTO) 0.06 x10^3/uL (0-0.1); BASOPHILS % (AUTO) 1 % (0-1); EOSINOPHILS % (AUTO) 3 % (1-7); LYMPHOCYTES # (AUTO) 1.81 x10^3/uL (1-3.4); LYMPHOCYTES % (AUTO) 29 % (22-44); MD NO; MEAN CORPUSCULAR HEMOGLOBIN 29.9 pg (27.5-34.5); MEAN CORPUSCULAR HGB CONC 32.6 g/dL (33.2-36.2); MEAN CORPUSCULAR VOLUME 91.8 fL (81-97); MEAN PLATELET VOLUME 9.7 fL (7.4-10.4); MONOCYTES # (AUTO) 0.37 x10^3/uL (0.2-0.8); MONOCYTES % (AUTO) 6 % (2-9); NEUTROPHILS # (AUTO) 3.74 x10^3/uL (1.8-6.8); NEUTROPHILS % (AUTO) 61 % (42-75); PLATELET COUNT 224 x10^3/uL (130-400); RED CELL DISTRIBUTION WIDTH 14.5 % (9.4-14.8)
[2019-02-14 06:34] LABS: ALANINE AMINOTRANSFERASE 65 U/L (12-78); ALBUMIN 3.3 g/dL (3.4-5.0); ANION GAP 5 mmol/L (5-15); CALCIUM 8.4 mg/dL (8.5-10.1); CHLORIDE 107 mmol/L (98-107)
[2019-02-14 06:37] LABS: ALKALINE PHOSPHATASE 80 U/L (45-117); BILIRUBIN,TOTAL 0.5 mg/dL (0.2-1.0); CREATININE 0.55 mg/dL (0.7-1.3); TOTAL PROTEIN 6.5 g/dL (6.4-8.2)
[2019-02-14] MEDS: POTASSIUM CHLORIDE 10 MEQ in D5%-0.45% NACL 1,000 ML IV SCH ×2 (07:24→17:23)
[2019-02-14 08:23] VITALS: BP 122/78
[2019-02-14 08:55] LABS: AMPHETAMINE SCREEN, URINE Positive (Negative); BARBITURATE SCREEN, URINE Negative (Negative); BENZODIAZEPINE SCREEN, URINE Positive (Negative); CANNABINOID SCREEN, URINE Positive (Negative); COCAINE SCREEN, URINE Negative (Negative); METHADONE SCREEN, URINE Negative (Negative); OPIATE SCREEN, URINE Negative (Negative)
[2019-02-14] MEDS: VANCOMYCIN 1,300 MG in SODIUM CHLORIDE 0.9% 250 ML IV SCH (12:46)
[2019-02-14 14:00] VITALS: BP 113/63
[2019-02-14 19:56] VITALS: BP 102/53
[2019-02-15] MEDS: AMPICILLIN/SULBACTAM 1,500 MG in SODIUM CHLORIDE 0.9% 50 ML IV SCH ×4 (00:19→17:45)
[2019-02-15 01:18] VITALS: BP 123/81
[2019-02-15] MEDS: HEPARIN 5,000 UNITS/ML, 1ML SQ SCH ×3 (02:00→17:46)
[2019-02-15] MEDS: POTASSIUM CHLORIDE 10 MEQ in D5%-0.45% NACL 1,000 ML IV SCH (04:56)
[2019-02-15] MEDS: VANCOMYCIN 1,300 MG in SODIUM CHLORIDE 0.9% 250 ML IV SCH (06:28)
[2019-02-15 08:09] VITALS: BP 117/72
[2019-02-15 14:45] VITALS: BP 118/72
[2019-02-15 19:03] VITALS: BP 124/78
[2019-02-15] MEDS ORDERED: DIPHENHYDRAMINE 50 MG CAPSULE PO PRN (23:00)
[2019-02-15] MEDS: DOCUSATE 100 MG CAPSULE PO SCH (23:16)
[2019-02-16] MEDS: AMPICILLIN/SULBACTAM 1,500 MG in SODIUM CHLORIDE 0.9% 50 ML IV SCH ×3 (00:10→12:58)
[2019-02-16 00:27] VITALS: BP 116/76
[2019-02-16] MEDS: VANCOMYCIN 1,300 MG in SODIUM CHLORIDE 0.9% 250 ML IV SCH (01:12)
[2019-02-16] MEDS: HEPARIN 5,000 UNITS/ML, 1ML SQ SCH ×2 (02:00→09:24)
[2019-02-16 09:03] VITALS: BP 106/68
[2019-02-16] MEDS: DOCUSATE 100 MG CAPSULE PO SCH (09:24)
[2019-02-16] MEDS ORDERED: DOXY100T23 PO (11:30)
[2019-02-16] MEDS ORDERED: AMOX1TAB64 PO (11:30)
[2019-02-16 12:48] VITALS: BP 117/73
[2019-02-16] MEDS ORDERED: FLU VACC QS2019-20 36MOS UP/PF 0.5 ML IM-VACC ONE (13:00)
== END 2019-02-16 14:21 | disposition home or self-care (01) | DRG 602 ==
LOC: ED 15:33 → EDIP 15:34 → ED 15:47 → 3N 16:31
PROVIDERS: ADMIT Family Medicine; ATTEND Family Medicine
DX: L03.115 Cellulitis of right lower limb (principal); R53.2 Functional quadriplegia; L97.319 Non-pressure chronic ulcer of right ankle with unspecified severity; F17.200 Nicotine dependence, unspecified, uncomplicated; E16.2 Hypoglycemia, unspecified; F12.10 Cannabis abuse, uncomplicated; L03.116 Cellulitis of left lower limb; Z89.421 Acquired absence of other right toe(s); Z89.412 Acquired absence of left great toe; Z71.6 Tobacco abuse counseling; Z99.3 Dependence on wheelchair; Z71.51 Drug abuse counseling and surveillance of drug abuser; Z23 Encounter for immunization; T14.8XXS Other injury of unspecified body region, sequela; W34.00XS Accidental discharge from unspecified firearms or gun, sequela; Z86.69 Personal history of other diseases of the nervous system and sense organs
CPT/HCPCS: 36415; 80053; 80307; 83605; 85025; 85651; 86140; 87040; 87070; 87205; 90686; 93922; 99285; G0378; J1644; J2405; J3370; J3480; A9575; J0295; J7050

== ENCOUNTER → 2019-02-13 | Outpatient (CLI) | payer MEDICARE | END | disposition home or self-care (01) | LOC: WOUND 08:49 | PROVIDERS: ATTEND Nurse Practitioner Family | DX: T81.33XD Disruption of traumatic injury wound repair, subsequent encounter (principal); L89.522 Pressure ulcer of left ankle, stage 2; L89.896 Pressure-induced deep tissue damage of other site; L97.511 Non-pressure chronic ulcer of other part of right foot limited to breakdown of skin; L97.521 Non-pressure chronic ulcer of other part of left foot limited to breakdown of skin; L97.321 Non-pressure chronic ulcer of left ankle limited to breakdown of skin; L97.311 Non-pressure chronic ulcer of right ankle limited to breakdown of skin; M86.072 Acute hematogenous osteomyelitis, left ankle and foot; M86.171 Other acute osteomyelitis, right ankle and foot; G82.20 Paraplegia, unspecified; F12.10 Cannabis abuse, uncomplicated; F32.9 Major depressive disorder, single episode, unspecified; F17.210 Nicotine dependence, cigarettes, uncomplicated; Z86.14 Personal history of Methicillin resistant Staphylococcus aureus infection; Z89.412 Acquired absence of left great toe; Z89.422 Acquired absence of other left toe(s); Z89.421 Acquired absence of other right toe(s); Z90.49 Acquired absence of other specified parts of digestive tract | CPT/HCPCS: 11042; 97597; G0463 ==

== ENCOUNTER → 2019-02-20 | Outpatient (CLI) | payer MEDICARE ==
[~2019-02-20] MED LIST changes: +AMOX1TAB64 PO; +DOXY100T23 PO
== END | disposition home or self-care (01) ==
LOC: WOUND 09:51
PROVIDERS: ATTEND Nurse Practitioner Family
DX: T81.33XD Disruption of traumatic injury wound repair, subsequent encounter (principal); L89.522 Pressure ulcer of left ankle, stage 2; L89.896 Pressure-induced deep tissue damage of other site; L97.521 Non-pressure chronic ulcer of other part of left foot limited to breakdown of skin; L97.511 Non-pressure chronic ulcer of other part of right foot limited to breakdown of skin; L97.321 Non-pressure chronic ulcer of left ankle limited to breakdown of skin; L97.311 Non-pressure chronic ulcer of right ankle limited to breakdown of skin; M86.072 Acute hematogenous osteomyelitis, left ankle and foot; M86.171 Other acute osteomyelitis, right ankle and foot; G82.20 Paraplegia, unspecified; F12.10 Cannabis abuse, uncomplicated; F32.9 Major depressive disorder, single episode, unspecified; F17.210 Nicotine dependence, cigarettes, uncomplicated; Z86.14 Personal history of Methicillin resistant Staphylococcus aureus infection; Z89.412 Acquired absence of left great toe; Z89.422 Acquired absence of other left toe(s); Z89.421 Acquired absence of other right toe(s); Z90.49 Acquired absence of other specified parts of digestive tract
CPT/HCPCS: 97597

== ENCOUNTER → 2019-03-02 | Outpatient (CLI) | payer MEDICARE | END | disposition home or self-care (01) | LOC: WOUND 11:15 | PROVIDERS: ATTEND Family Medicine | DX: T81.33XD Disruption of traumatic injury wound repair, subsequent encounter (principal); L89.522 Pressure ulcer of left ankle, stage 2; L89.896 Pressure-induced deep tissue damage of other site; L97.511 Non-pressure chronic ulcer of other part of right foot limited to breakdown of skin; L97.521 Non-pressure chronic ulcer of other part of left foot limited to breakdown of skin; L97.321 Non-pressure chronic ulcer of left ankle limited to breakdown of skin; L97.311 Non-pressure chronic ulcer of right ankle limited to breakdown of skin; M86.171 Other acute osteomyelitis, right ankle and foot; G82.20 Paraplegia, unspecified; F12.10 Cannabis abuse, uncomplicated; F32.9 Major depressive disorder, single episode, unspecified; F17.210 Nicotine dependence, cigarettes, uncomplicated; Z86.14 Personal history of Methicillin resistant Staphylococcus aureus infection; Z89.412 Acquired absence of left great toe; Z89.422 Acquired absence of other left toe(s); Z89.421 Acquired absence of other right toe(s); Z90.49 Acquired absence of other specified parts of digestive tract | CPT/HCPCS: 97597; 97598 ==

== ENCOUNTER → 2019-03-06 | Outpatient (CLI) | payer MEDICARE | END | disposition home or self-care (01) | LOC: WOUND 08:57 | PROVIDERS: ATTEND Nurse Practitioner Family | DX: T81.33XD Disruption of traumatic injury wound repair, subsequent encounter (principal); L89.522 Pressure ulcer of left ankle, stage 2; L89.896 Pressure-induced deep tissue damage of other site; L97.511 Non-pressure chronic ulcer of other part of right foot limited to breakdown of skin; L97.521 Non-pressure chronic ulcer of other part of left foot limited to breakdown of skin; L97.321 Non-pressure chronic ulcer of left ankle limited to breakdown of skin; L97.311 Non-pressure chronic ulcer of right ankle limited to breakdown of skin; M86.171 Other acute osteomyelitis, right ankle and foot; G82.20 Paraplegia, unspecified; F12.10 Cannabis abuse, uncomplicated; F32.9 Major depressive disorder, single episode, unspecified; F17.210 Nicotine dependence, cigarettes, uncomplicated; Z86.14 Personal history of Methicillin resistant Staphylococcus aureus infection; Z89.412 Acquired absence of left great toe; Z89.422 Acquired absence of other left toe(s); Z89.421 Acquired absence of other right toe(s); Z90.49 Acquired absence of other specified parts of digestive tract | CPT/HCPCS: 97597; 97598 ==

== ENCOUNTER 2019-03-13 09:02 | Outpatient (CLI) | payer MEDICARE | END 2019-03-13 23:59 | disposition home or self-care (01) | LOC: WOUND 09:02 | PROVIDERS: ATTEND Internal Medicine Infectious Disease | DX: T81.33XD Disruption of traumatic injury wound repair, subsequent encounter (principal); L89.522 Pressure ulcer of left ankle, stage 2; L89.896 Pressure-induced deep tissue damage of other site; L97.511 Non-pressure chronic ulcer of other part of right foot limited to breakdown of skin; L97.521 Non-pressure chronic ulcer of other part of left foot limited to breakdown of skin; L97.321 Non-pressure chronic ulcer of left ankle limited to breakdown of skin; L97.311 Non-pressure chronic ulcer of right ankle limited to breakdown of skin; M86.171 Other acute osteomyelitis, right ankle and foot; G82.20 Paraplegia, unspecified; F12.10 Cannabis abuse, uncomplicated; F32.9 Major depressive disorder, single episode, unspecified; F17.210 Nicotine dependence, cigarettes, uncomplicated; Z86.14 Personal history of Methicillin resistant Staphylococcus aureus infection; Z89.412 Acquired absence of left great toe; Z89.422 Acquired absence of other left toe(s); Z89.421 Acquired absence of other right toe(s); Z90.49 Acquired absence of other specified parts of digestive tract | CPT/HCPCS: 97597; 97598 ==

== ENCOUNTER 2019-03-20 08:48 | Outpatient (CLI) | payer MEDICARE | END 2019-03-20 23:59 | disposition home or self-care (01) | LOC: WOUND 08:48 | PROVIDERS: ATTEND Internal Medicine Infectious Disease | DX: T81.33XD Disruption of traumatic injury wound repair, subsequent encounter (principal); L89.522 Pressure ulcer of left ankle, stage 2; L89.896 Pressure-induced deep tissue damage of other site; L97.511 Non-pressure chronic ulcer of other part of right foot limited to breakdown of skin; L97.521 Non-pressure chronic ulcer of other part of left foot limited to breakdown of skin; L97.321 Non-pressure chronic ulcer of left ankle limited to breakdown of skin; L97.311 Non-pressure chronic ulcer of right ankle limited to breakdown of skin; M86.171 Other acute osteomyelitis, right ankle and foot; G82.20 Paraplegia, unspecified; F12.10 Cannabis abuse, uncomplicated; F32.9 Major depressive disorder, single episode, unspecified; F17.210 Nicotine dependence, cigarettes, uncomplicated; Z86.14 Personal history of Methicillin resistant Staphylococcus aureus infection; Z89.412 Acquired absence of left great toe; Z89.422 Acquired absence of other left toe(s); Z89.421 Acquired absence of other right toe(s); Z90.49 Acquired absence of other specified parts of digestive tract | CPT/HCPCS: 97597; 97598 ==

== ENCOUNTER 2019-03-27 09:00 | Outpatient (CLI) | payer MEDICARE | END 2019-03-27 23:59 | disposition home or self-care (01) | LOC: WOUND 09:00 | PROVIDERS: ATTEND Internal Medicine Infectious Disease | DX: T81.33XD Disruption of traumatic injury wound repair, subsequent encounter (principal); L89.513 Pressure ulcer of right ankle, stage 3; L97.311 Non-pressure chronic ulcer of right ankle limited to breakdown of skin; L89.522 Pressure ulcer of left ankle, stage 2; L97.322 Non-pressure chronic ulcer of left ankle with fat layer exposed; L89.896 Pressure-induced deep tissue damage of other site; L97.411 Non-pressure chronic ulcer of right heel and midfoot limited to breakdown of skin; L97.512 Non-pressure chronic ulcer of other part of right foot with fat layer exposed; L97.521 Non-pressure chronic ulcer of other part of left foot limited to breakdown of skin; M86.171 Other acute osteomyelitis, right ankle and foot; F32.9 Major depressive disorder, single episode, unspecified; F12.10 Cannabis abuse, uncomplicated; F19.10 Other psychoactive substance abuse, uncomplicated; F17.210 Nicotine dependence, cigarettes, uncomplicated; Z89.412 Acquired absence of left great toe; Z89.422 Acquired absence of other left toe(s); Z89.421 Acquired absence of other right toe(s); Z90.49 Acquired absence of other specified parts of digestive tract; Z86.69 Personal history of other diseases of the nervous system and sense organs; Z86.14 Personal history of Methicillin resistant Staphylococcus aureus infection; Z99.3 Dependence on wheelchair; Y83.8 Other surgical procedures as the cause of abnormal reaction of the patient, or of later complication, without mention of misadventure at the time of the procedure | CPT/HCPCS: 11042; 97597; 97598 ==

== ENCOUNTER 2019-04-03 09:57 | Outpatient (CLI) | payer MEDICARE, MEDICAID | END 2019-04-03 23:59 | disposition home or self-care (01) | LOC: WOUND 09:57 | PROVIDERS: ATTEND Nurse Practitioner Family | DX: T81.33XD Disruption of traumatic injury wound repair, subsequent encounter (principal); L89.522 Pressure ulcer of left ankle, stage 2; L89.896 Pressure-induced deep tissue damage of other site; L97.412 Non-pressure chronic ulcer of right heel and midfoot with fat layer exposed; L97.521 Non-pressure chronic ulcer of other part of left foot limited to breakdown of skin; L97.311 Non-pressure chronic ulcer of right ankle limited to breakdown of skin; M86.171 Other acute osteomyelitis, right ankle and foot; G82.20 Paraplegia, unspecified; F12.10 Cannabis abuse, uncomplicated; F32.9 Major depressive disorder, single episode, unspecified; F17.210 Nicotine dependence, cigarettes, uncomplicated; Z86.14 Personal history of Methicillin resistant Staphylococcus aureus infection; Z89.412 Acquired absence of left great toe; Z89.422 Acquired absence of other left toe(s); Z89.421 Acquired absence of other right toe(s); Z90.49 Acquired absence of other specified parts of digestive tract | CPT/HCPCS: 97597; 97598 ==

== ENCOUNTER 2019-04-10 09:41 | Outpatient (CLI) | payer MEDICARE, MEDICAID | END 2019-04-10 23:59 | disposition home or self-care (01) | LOC: WOUND 09:41 | PROVIDERS: ATTEND Nurse Practitioner Family | DX: T81.33XD Disruption of traumatic injury wound repair, subsequent encounter (principal); L89.513 Pressure ulcer of right ankle, stage 3; L89.896 Pressure-induced deep tissue damage of other site; L97.321 Non-pressure chronic ulcer of left ankle limited to breakdown of skin; L97.521 Non-pressure chronic ulcer of other part of left foot limited to breakdown of skin; L97.511 Non-pressure chronic ulcer of other part of right foot limited to breakdown of skin; L97.411 Non-pressure chronic ulcer of right heel and midfoot limited to breakdown of skin; G82.20 Paraplegia, unspecified; F12.10 Cannabis abuse, uncomplicated; F32.9 Major depressive disorder, single episode, unspecified; F17.210 Nicotine dependence, cigarettes, uncomplicated; F19.10 Other psychoactive substance abuse, uncomplicated; Z99.3 Dependence on wheelchair; Z71.51 Drug abuse counseling and surveillance of drug abuser; Z86.14 Personal history of Methicillin resistant Staphylococcus aureus infection; Z86.69 Personal history of other diseases of the nervous system and sense organs; Z89.412 Acquired absence of left great toe; Z89.422 Acquired absence of other left toe(s); Z89.421 Acquired absence of other right toe(s); Z90.49 Acquired absence of other specified parts of digestive tract; Y83.8 Other surgical procedures as the cause of abnormal reaction of the patient, or of later complication, without mention of misadventure at the time of the procedure | CPT/HCPCS: 97597; 97598 ==

== ENCOUNTER 2019-04-17 10:20 | Outpatient (CLI) | payer MEDICARE, MEDICAID | END 2019-04-17 23:59 | disposition home or self-care (01) | LOC: WOUND 10:20 | PROVIDERS: ATTEND Nurse Practitioner Family | DX: T81.33XD Disruption of traumatic injury wound repair, subsequent encounter (principal); L89.513 Pressure ulcer of right ankle, stage 3; L89.896 Pressure-induced deep tissue damage of other site; L97.321 Non-pressure chronic ulcer of left ankle limited to breakdown of skin; L97.521 Non-pressure chronic ulcer of other part of left foot limited to breakdown of skin; L97.511 Non-pressure chronic ulcer of other part of right foot limited to breakdown of skin; L97.411 Non-pressure chronic ulcer of right heel and midfoot limited to breakdown of skin; M86.8X7 Other osteomyelitis, ankle and foot; G82.20 Paraplegia, unspecified; F32.9 Major depressive disorder, single episode, unspecified; F19.10 Other psychoactive substance abuse, uncomplicated; F12.10 Cannabis abuse, uncomplicated; F17.210 Nicotine dependence, cigarettes, uncomplicated; Z89.412 Acquired absence of left great toe; Z89.422 Acquired absence of other left toe(s); Z89.421 Acquired absence of other right toe(s); Z90.49 Acquired absence of other specified parts of digestive tract; Z99.3 Dependence on wheelchair; Z86.69 Personal history of other diseases of the nervous system and sense organs; Z86.14 Personal history of Methicillin resistant Staphylococcus aureus infection; Z71.51 Drug abuse counseling and surveillance of drug abuser; Y83.8 Other surgical procedures as the cause of abnormal reaction of the patient, or of later complication, without mention of misadventure at the time of the procedure | CPT/HCPCS: 97597; 97598 ==

== ENCOUNTER → 2019-04-24 | Outpatient (CLI) | payer MEDICARE, MEDICAID | END | disposition home or self-care (01) | LOC: WOUND 09:11 | PROVIDERS: ATTEND Internal Medicine Infectious Disease | DX: T81.33XD Disruption of traumatic injury wound repair, subsequent encounter (principal); L89.513 Pressure ulcer of right ankle, stage 3; L89.896 Pressure-induced deep tissue damage of other site; L97.321 Non-pressure chronic ulcer of left ankle limited to breakdown of skin; L97.521 Non-pressure chronic ulcer of other part of left foot limited to breakdown of skin; L97.511 Non-pressure chronic ulcer of other part of right foot limited to breakdown of skin; L97.411 Non-pressure chronic ulcer of right heel and midfoot limited to breakdown of skin; M86.8X7 Other osteomyelitis, ankle and foot; G82.20 Paraplegia, unspecified; F32.9 Major depressive disorder, single episode, unspecified; F19.10 Other psychoactive substance abuse, uncomplicated; F12.10 Cannabis abuse, uncomplicated; F17.210 Nicotine dependence, cigarettes, uncomplicated; Z89.412 Acquired absence of left great toe; Z89.422 Acquired absence of other left toe(s); Z89.421 Acquired absence of other right toe(s); Z90.49 Acquired absence of other specified parts of digestive tract; Z99.3 Dependence on wheelchair; Z86.69 Personal history of other diseases of the nervous system and sense organs; Z86.14 Personal history of Methicillin resistant Staphylococcus aureus infection; Z71.51 Drug abuse counseling and surveillance of drug abuser; Y83.8 Other surgical procedures as the cause of abnormal reaction of the patient, or of later complication, without mention of misadventure at the time of the procedure | CPT/HCPCS: 97597; 97598 ==

== ENCOUNTER → 2019-05-01 | Outpatient (CLI) | payer MEDICARE, MEDICAID | END | disposition home or self-care (01) | LOC: WOUND 09:04 | PROVIDERS: ATTEND Nurse Practitioner Family | DX: T81.33XD Disruption of traumatic injury wound repair, subsequent encounter (principal); L89.513 Pressure ulcer of right ankle, stage 3; L89.896 Pressure-induced deep tissue damage of other site; L97.321 Non-pressure chronic ulcer of left ankle limited to breakdown of skin; L97.521 Non-pressure chronic ulcer of other part of left foot limited to breakdown of skin; L97.511 Non-pressure chronic ulcer of other part of right foot limited to breakdown of skin; L97.411 Non-pressure chronic ulcer of right heel and midfoot limited to breakdown of skin; G82.20 Paraplegia, unspecified; M86.171 Other acute osteomyelitis, right ankle and foot; F32.9 Major depressive disorder, single episode, unspecified; F19.10 Other psychoactive substance abuse, uncomplicated; F12.10 Cannabis abuse, uncomplicated; F17.210 Nicotine dependence, cigarettes, uncomplicated; Z89.412 Acquired absence of left great toe; Z89.422 Acquired absence of other left toe(s); Z89.421 Acquired absence of other right toe(s); Z90.49 Acquired absence of other specified parts of digestive tract; Z99.3 Dependence on wheelchair; Z86.69 Personal history of other diseases of the nervous system and sense organs; Z86.14 Personal history of Methicillin resistant Staphylococcus aureus infection; Z71.51 Drug abuse counseling and surveillance of drug abuser; Y83.8 Other surgical procedures as the cause of abnormal reaction of the patient, or of later complication, without mention of misadventure at the time of the procedure | CPT/HCPCS: 97597; 97598 ==

== ENCOUNTER → 2019-05-08 | Outpatient (CLI) | payer MEDICARE, MEDICAID | END | disposition home or self-care (01) | LOC: WOUND 09:00 | PROVIDERS: ATTEND Nurse Practitioner Family | DX: T81.33XD Disruption of traumatic injury wound repair, subsequent encounter (principal); L89.513 Pressure ulcer of right ankle, stage 3; L89.896 Pressure-induced deep tissue damage of other site; L97.321 Non-pressure chronic ulcer of left ankle limited to breakdown of skin; L97.521 Non-pressure chronic ulcer of other part of left foot limited to breakdown of skin; L97.511 Non-pressure chronic ulcer of other part of right foot limited to breakdown of skin; L97.411 Non-pressure chronic ulcer of right heel and midfoot limited to breakdown of skin; G82.20 Paraplegia, unspecified; M86.171 Other acute osteomyelitis, right ankle and foot; F32.9 Major depressive disorder, single episode, unspecified; F19.10 Other psychoactive substance abuse, uncomplicated; F12.10 Cannabis abuse, uncomplicated; F17.210 Nicotine dependence, cigarettes, uncomplicated; Z89.412 Acquired absence of left great toe; Z89.422 Acquired absence of other left toe(s); Z89.421 Acquired absence of other right toe(s); Z90.49 Acquired absence of other specified parts of digestive tract; Z99.3 Dependence on wheelchair; Z86.69 Personal history of other diseases of the nervous system and sense organs; Z86.14 Personal history of Methicillin resistant Staphylococcus aureus infection; Z71.51 Drug abuse counseling and surveillance of drug abuser; Y83.8 Other surgical procedures as the cause of abnormal reaction of the patient, or of later complication, without mention of misadventure at the time of the procedure | CPT/HCPCS: 97597; 97598 ==

== ENCOUNTER 2019-05-15 09:51 | Outpatient (CLI) | payer MEDICARE, MEDICAID | END 2019-05-15 23:59 | disposition home or self-care (01) | LOC: WOUND 09:51 | PROVIDERS: ATTEND Nurse Practitioner Family | DX: T81.33XD Disruption of traumatic injury wound repair, subsequent encounter (principal); L89.513 Pressure ulcer of right ankle, stage 3; L97.311 Non-pressure chronic ulcer of right ankle limited to breakdown of skin; L89.896 Pressure-induced deep tissue damage of other site; L97.521 Non-pressure chronic ulcer of other part of left foot limited to breakdown of skin; L97.511 Non-pressure chronic ulcer of other part of right foot limited to breakdown of skin; L97.321 Non-pressure chronic ulcer of left ankle limited to breakdown of skin; L97.411 Non-pressure chronic ulcer of right heel and midfoot limited to breakdown of skin; M86.671 Other chronic osteomyelitis, right ankle and foot; F12.10 Cannabis abuse, uncomplicated; F17.210 Nicotine dependence, cigarettes, uncomplicated; F32.9 Major depressive disorder, single episode, unspecified; F19.10 Other psychoactive substance abuse, uncomplicated; Z86.14 Personal history of Methicillin resistant Staphylococcus aureus infection; Z89.421 Acquired absence of other right toe(s); Z89.422 Acquired absence of other left toe(s); Z89.412 Acquired absence of left great toe; Z90.49 Acquired absence of other specified parts of digestive tract; Z86.69 Personal history of other diseases of the nervous system and sense organs; Y83.8 Other surgical procedures as the cause of abnormal reaction of the patient, or of later complication, without mention of misadventure at the time of the procedure | CPT/HCPCS: 97597 ==

== ENCOUNTER → 2019-05-25 | Outpatient (CLI) | payer MEDICARE, MEDICAID | END | disposition home or self-care (01) | LOC: WOUND 09:24 | PROVIDERS: ATTEND Family Medicine | DX: T81.33XD Disruption of traumatic injury wound repair, subsequent encounter (principal); L89.896 Pressure-induced deep tissue damage of other site; L89.513 Pressure ulcer of right ankle, stage 3; L97.321 Non-pressure chronic ulcer of left ankle limited to breakdown of skin; L97.511 Non-pressure chronic ulcer of other part of right foot limited to breakdown of skin; L97.521 Non-pressure chronic ulcer of other part of left foot limited to breakdown of skin; L97.311 Non-pressure chronic ulcer of right ankle limited to breakdown of skin; L97.411 Non-pressure chronic ulcer of right heel and midfoot limited to breakdown of skin; G62.9 Polyneuropathy, unspecified; M86.672 Other chronic osteomyelitis, left ankle and foot; M86.671 Other chronic osteomyelitis, right ankle and foot; G82.20 Paraplegia, unspecified; F32.9 Major depressive disorder, single episode, unspecified; F19.10 Other psychoactive substance abuse, uncomplicated; F17.210 Nicotine dependence, cigarettes, uncomplicated; Z86.14 Personal history of Methicillin resistant Staphylococcus aureus infection; Z89.421 Acquired absence of other right toe(s); Z90.49 Acquired absence of other specified parts of digestive tract; Z89.412 Acquired absence of left great toe; Z99.3 Dependence on wheelchair; Y83.8 Other surgical procedures as the cause of abnormal reaction of the patient, or of later complication, without mention of misadventure at the time of the procedure | CPT/HCPCS: G0463 ==

== ENCOUNTER → 2019-05-29 | Outpatient (CLI) | payer MEDICARE, MEDICAID | END | disposition home or self-care (01) | LOC: WOUND 09:27 | PROVIDERS: ATTEND Family Medicine | DX: T81.33XD Disruption of traumatic injury wound repair, subsequent encounter (principal); L89.896 Pressure-induced deep tissue damage of other site; L89.513 Pressure ulcer of right ankle, stage 3; L97.321 Non-pressure chronic ulcer of left ankle limited to breakdown of skin; L97.511 Non-pressure chronic ulcer of other part of right foot limited to breakdown of skin; L97.521 Non-pressure chronic ulcer of other part of left foot limited to breakdown of skin; L97.311 Non-pressure chronic ulcer of right ankle limited to breakdown of skin; L97.411 Non-pressure chronic ulcer of right heel and midfoot limited to breakdown of skin; G62.9 Polyneuropathy, unspecified; M86.672 Other chronic osteomyelitis, left ankle and foot; M86.671 Other chronic osteomyelitis, right ankle and foot; G82.20 Paraplegia, unspecified; F32.9 Major depressive disorder, single episode, unspecified; F19.10 Other psychoactive substance abuse, uncomplicated; F17.210 Nicotine dependence, cigarettes, uncomplicated; Z86.14 Personal history of Methicillin resistant Staphylococcus aureus infection; Z89.421 Acquired absence of other right toe(s); Z90.49 Acquired absence of other specified parts of digestive tract; Z89.412 Acquired absence of left great toe; Y83.8 Other surgical procedures as the cause of abnormal reaction of the patient, or of later complication, without mention of misadventure at the time of the procedure | CPT/HCPCS: 11042; 97597; 97598 ==

== ENCOUNTER → 2019-06-01 | Outpatient (CLI) | payer MEDICARE, MEDICAID | END | disposition home or self-care (01) | LOC: WOUND 11:28 | PROVIDERS: ATTEND Family Medicine | DX: T81.33XD Disruption of traumatic injury wound repair, subsequent encounter (principal); L89.896 Pressure-induced deep tissue damage of other site; L89.513 Pressure ulcer of right ankle, stage 3; L97.321 Non-pressure chronic ulcer of left ankle limited to breakdown of skin; L97.511 Non-pressure chronic ulcer of other part of right foot limited to breakdown of skin; L97.521 Non-pressure chronic ulcer of other part of left foot limited to breakdown of skin; L97.411 Non-pressure chronic ulcer of right heel and midfoot limited to breakdown of skin; G62.9 Polyneuropathy, unspecified; M86.672 Other chronic osteomyelitis, left ankle and foot; M86.671 Other chronic osteomyelitis, right ankle and foot; G82.20 Paraplegia, unspecified; F32.9 Major depressive disorder, single episode, unspecified; F19.10 Other psychoactive substance abuse, uncomplicated; F17.210 Nicotine dependence, cigarettes, uncomplicated; Z86.14 Personal history of Methicillin resistant Staphylococcus aureus infection; Z89.421 Acquired absence of other right toe(s); Z90.49 Acquired absence of other specified parts of digestive tract; Z89.412 Acquired absence of left great toe; Z99.3 Dependence on wheelchair; Y83.8 Other surgical procedures as the cause of abnormal reaction of the patient, or of later complication, without mention of misadventure at the time of the procedure | CPT/HCPCS: G0463 ==

== ENCOUNTER → 2019-06-05 | Outpatient (CLI) | payer MEDICARE, MEDICAID | END | disposition home or self-care (01) | LOC: WOUND 10:00 | PROVIDERS: ATTEND Nurse Practitioner Family | DX: T81.33XD Disruption of traumatic injury wound repair, subsequent encounter (principal); L89.896 Pressure-induced deep tissue damage of other site; L89.513 Pressure ulcer of right ankle, stage 3; L97.312 Non-pressure chronic ulcer of right ankle with fat layer exposed; L97.321 Non-pressure chronic ulcer of left ankle limited to breakdown of skin; L97.511 Non-pressure chronic ulcer of other part of right foot limited to breakdown of skin; L97.521 Non-pressure chronic ulcer of other part of left foot limited to breakdown of skin; L97.411 Non-pressure chronic ulcer of right heel and midfoot limited to breakdown of skin; G62.9 Polyneuropathy, unspecified; M86.672 Other chronic osteomyelitis, left ankle and foot; M86.671 Other chronic osteomyelitis, right ankle and foot; G82.20 Paraplegia, unspecified; F32.9 Major depressive disorder, single episode, unspecified; F19.10 Other psychoactive substance abuse, uncomplicated; F17.210 Nicotine dependence, cigarettes, uncomplicated; Z86.14 Personal history of Methicillin resistant Staphylococcus aureus infection; Z89.421 Acquired absence of other right toe(s); Z90.49 Acquired absence of other specified parts of digestive tract; Z89.412 Acquired absence of left great toe; Z99.3 Dependence on wheelchair; Y83.8 Other surgical procedures as the cause of abnormal reaction of the patient, or of later complication, without mention of misadventure at the time of the procedure | CPT/HCPCS: 97597; 97598 ==

== ENCOUNTER → 2019-06-08 | Outpatient (CLI) | payer MEDICARE, MEDICAID | END | disposition home or self-care (01) | LOC: WOUND 14:20 | PROVIDERS: ATTEND Family Medicine | DX: T81.33XD Disruption of traumatic injury wound repair, subsequent encounter (principal); L89.896 Pressure-induced deep tissue damage of other site; L89.513 Pressure ulcer of right ankle, stage 3; L97.312 Non-pressure chronic ulcer of right ankle with fat layer exposed; L97.321 Non-pressure chronic ulcer of left ankle limited to breakdown of skin; L97.511 Non-pressure chronic ulcer of other part of right foot limited to breakdown of skin; L97.521 Non-pressure chronic ulcer of other part of left foot limited to breakdown of skin; L97.411 Non-pressure chronic ulcer of right heel and midfoot limited to breakdown of skin; G62.9 Polyneuropathy, unspecified; M86.672 Other chronic osteomyelitis, left ankle and foot; G82.20 Paraplegia, unspecified; M86.671 Other chronic osteomyelitis, right ankle and foot; F32.9 Major depressive disorder, single episode, unspecified; F19.10 Other psychoactive substance abuse, uncomplicated; F17.210 Nicotine dependence, cigarettes, uncomplicated; Z86.14 Personal history of Methicillin resistant Staphylococcus aureus infection; Z89.421 Acquired absence of other right toe(s); Z90.49 Acquired absence of other specified parts of digestive tract; Z89.412 Acquired absence of left great toe; Z99.3 Dependence on wheelchair; Y83.8 Other surgical procedures as the cause of abnormal reaction of the patient, or of later complication, without mention of misadventure at the time of the procedure | CPT/HCPCS: 99214 ==

== ENCOUNTER 2019-06-12 10:16 | Outpatient (CLI) | payer MEDICARE, MEDICAID | END 2019-06-12 23:59 | disposition home or self-care (01) | LOC: WOUND 10:16 | PROVIDERS: ATTEND Nurse Practitioner Family | DX: T81.33XD Disruption of traumatic injury wound repair, subsequent encounter (principal); L89.896 Pressure-induced deep tissue damage of other site; L89.513 Pressure ulcer of right ankle, stage 3; L97.312 Non-pressure chronic ulcer of right ankle with fat layer exposed; L97.321 Non-pressure chronic ulcer of left ankle limited to breakdown of skin; L97.511 Non-pressure chronic ulcer of other part of right foot limited to breakdown of skin; L97.521 Non-pressure chronic ulcer of other part of left foot limited to breakdown of skin; L97.411 Non-pressure chronic ulcer of right heel and midfoot limited to breakdown of skin; G62.9 Polyneuropathy, unspecified; M86.672 Other chronic osteomyelitis, left ankle and foot; M86.671 Other chronic osteomyelitis, right ankle and foot; G82.20 Paraplegia, unspecified; F32.9 Major depressive disorder, single episode, unspecified; F19.10 Other psychoactive substance abuse, uncomplicated; F17.210 Nicotine dependence, cigarettes, uncomplicated; Z86.14 Personal history of Methicillin resistant Staphylococcus aureus infection; Z89.421 Acquired absence of other right toe(s); Z90.49 Acquired absence of other specified parts of digestive tract; Z89.412 Acquired absence of left great toe; Z99.3 Dependence on wheelchair; Y83.8 Other surgical procedures as the cause of abnormal reaction of the patient, or of later complication, without mention of misadventure at the time of the procedure | CPT/HCPCS: 17250; 97597; 97598 ==

== ENCOUNTER 2019-06-19 11:00 | Outpatient (CLI) | payer MEDICARE, MEDICAID | END 2019-06-19 23:59 | disposition home or self-care (01) | LOC: WOUND 11:00 | PROVIDERS: ATTEND Nurse Practitioner Family | DX: T81.33XD Disruption of traumatic injury wound repair, subsequent encounter (principal); L89.896 Pressure-induced deep tissue damage of other site; L89.513 Pressure ulcer of right ankle, stage 3; L97.312 Non-pressure chronic ulcer of right ankle with fat layer exposed; L97.321 Non-pressure chronic ulcer of left ankle limited to breakdown of skin; L97.511 Non-pressure chronic ulcer of other part of right foot limited to breakdown of skin; L97.521 Non-pressure chronic ulcer of other part of left foot limited to breakdown of skin; L97.411 Non-pressure chronic ulcer of right heel and midfoot limited to breakdown of skin; G62.9 Polyneuropathy, unspecified; M86.672 Other chronic osteomyelitis, left ankle and foot; G82.20 Paraplegia, unspecified; M86.671 Other chronic osteomyelitis, right ankle and foot; F32.9 Major depressive disorder, single episode, unspecified; F19.10 Other psychoactive substance abuse, uncomplicated; F17.210 Nicotine dependence, cigarettes, uncomplicated; Z86.14 Personal history of Methicillin resistant Staphylococcus aureus infection; Z89.421 Acquired absence of other right toe(s); Z90.49 Acquired absence of other specified parts of digestive tract; Z89.412 Acquired absence of left great toe; Z99.3 Dependence on wheelchair; Y83.8 Other surgical procedures as the cause of abnormal reaction of the patient, or of later complication, without mention of misadventure at the time of the procedure | CPT/HCPCS: 11043; 97597 ==

== ENCOUNTER → 2019-06-26 | Outpatient (CLI) | payer MEDICARE, MEDICAID | END | disposition home or self-care (01) | LOC: WOUND 10:27 | PROVIDERS: ATTEND Nurse Practitioner Family | DX: T81.33XD Disruption of traumatic injury wound repair, subsequent encounter (principal); L89.896 Pressure-induced deep tissue damage of other site; L89.513 Pressure ulcer of right ankle, stage 3; L97.311 Non-pressure chronic ulcer of right ankle limited to breakdown of skin; L97.321 Non-pressure chronic ulcer of left ankle limited to breakdown of skin; L97.511 Non-pressure chronic ulcer of other part of right foot limited to breakdown of skin; L97.521 Non-pressure chronic ulcer of other part of left foot limited to breakdown of skin; L97.411 Non-pressure chronic ulcer of right heel and midfoot limited to breakdown of skin; G62.9 Polyneuropathy, unspecified; M86.672 Other chronic osteomyelitis, left ankle and foot; G82.20 Paraplegia, unspecified; M86.671 Other chronic osteomyelitis, right ankle and foot; F32.9 Major depressive disorder, single episode, unspecified; F19.10 Other psychoactive substance abuse, uncomplicated; F17.210 Nicotine dependence, cigarettes, uncomplicated; Z86.14 Personal history of Methicillin resistant Staphylococcus aureus infection; Z89.421 Acquired absence of other right toe(s); Z90.49 Acquired absence of other specified parts of digestive tract; Z89.412 Acquired absence of left great toe; Z99.3 Dependence on wheelchair; Y83.8 Other surgical procedures as the cause of abnormal reaction of the patient, or of later complication, without mention of misadventure at the time of the procedure | CPT/HCPCS: 97597; 97598 ==

== ENCOUNTER → 2019-07-03 | Outpatient (CLI) | payer MEDICARE, MEDICAID | END | disposition home or self-care (01) | LOC: WOUND 10:14 | PROVIDERS: ATTEND Internal Medicine Infectious Disease | DX: T81.33XD Disruption of traumatic injury wound repair, subsequent encounter (principal); L89.896 Pressure-induced deep tissue damage of other site; L89.513 Pressure ulcer of right ankle, stage 3; L97.311 Non-pressure chronic ulcer of right ankle limited to breakdown of skin; L97.321 Non-pressure chronic ulcer of left ankle limited to breakdown of skin; L97.511 Non-pressure chronic ulcer of other part of right foot limited to breakdown of skin; L97.521 Non-pressure chronic ulcer of other part of left foot limited to breakdown of skin; L97.411 Non-pressure chronic ulcer of right heel and midfoot limited to breakdown of skin; G62.9 Polyneuropathy, unspecified; M86.672 Other chronic osteomyelitis, left ankle and foot; G82.20 Paraplegia, unspecified; M86.671 Other chronic osteomyelitis, right ankle and foot; F32.9 Major depressive disorder, single episode, unspecified; F19.10 Other psychoactive substance abuse, uncomplicated; F17.210 Nicotine dependence, cigarettes, uncomplicated; Z86.14 Personal history of Methicillin resistant Staphylococcus aureus infection; Z89.421 Acquired absence of other right toe(s); Z90.49 Acquired absence of other specified parts of digestive tract; Z89.412 Acquired absence of left great toe; Z99.3 Dependence on wheelchair; Y83.8 Other surgical procedures as the cause of abnormal reaction of the patient, or of later complication, without mention of misadventure at the time of the procedure | CPT/HCPCS: 97597 ==

== ENCOUNTER → 2019-07-10 | Outpatient (CLI) | payer MEDICARE, MEDICAID | END | disposition home or self-care (01) | LOC: WOUND 10:38 | PROVIDERS: ATTEND Nurse Practitioner Family | DX: T81.33XD Disruption of traumatic injury wound repair, subsequent encounter (principal); L89.896 Pressure-induced deep tissue damage of other site; L89.513 Pressure ulcer of right ankle, stage 3; L97.311 Non-pressure chronic ulcer of right ankle limited to breakdown of skin; L97.321 Non-pressure chronic ulcer of left ankle limited to breakdown of skin; L97.511 Non-pressure chronic ulcer of other part of right foot limited to breakdown of skin; L97.521 Non-pressure chronic ulcer of other part of left foot limited to breakdown of skin; L97.411 Non-pressure chronic ulcer of right heel and midfoot limited to breakdown of skin; G62.9 Polyneuropathy, unspecified; G82.20 Paraplegia, unspecified; M86.671 Other chronic osteomyelitis, right ankle and foot; M86.672 Other chronic osteomyelitis, left ankle and foot; F32.9 Major depressive disorder, single episode, unspecified; F19.10 Other psychoactive substance abuse, uncomplicated; F17.210 Nicotine dependence, cigarettes, uncomplicated; Z86.14 Personal history of Methicillin resistant Staphylococcus aureus infection; Z90.49 Acquired absence of other specified parts of digestive tract; Z89.412 Acquired absence of left great toe; Z89.421 Acquired absence of other right toe(s); Z99.3 Dependence on wheelchair; Y83.8 Other surgical procedures as the cause of abnormal reaction of the patient, or of later complication, without mention of misadventure at the time of the procedure | CPT/HCPCS: 97597 ==

== ENCOUNTER 2019-07-17 11:08 | Outpatient (CLI) | payer MEDICARE, MEDICAID | END 2019-07-17 23:59 | disposition home or self-care (01) | LOC: WOUND 11:08 | PROVIDERS: ATTEND Nurse Practitioner Family | DX: T81.33XD Disruption of traumatic injury wound repair, subsequent encounter (principal); L89.896 Pressure-induced deep tissue damage of other site; L89.513 Pressure ulcer of right ankle, stage 3; L97.311 Non-pressure chronic ulcer of right ankle limited to breakdown of skin; L97.321 Non-pressure chronic ulcer of left ankle limited to breakdown of skin; L97.511 Non-pressure chronic ulcer of other part of right foot limited to breakdown of skin; L97.521 Non-pressure chronic ulcer of other part of left foot limited to breakdown of skin; L97.411 Non-pressure chronic ulcer of right heel and midfoot limited to breakdown of skin; G62.9 Polyneuropathy, unspecified; G82.20 Paraplegia, unspecified; M86.671 Other chronic osteomyelitis, right ankle and foot; M86.672 Other chronic osteomyelitis, left ankle and foot; F32.9 Major depressive disorder, single episode, unspecified; F19.10 Other psychoactive substance abuse, uncomplicated; F17.210 Nicotine dependence, cigarettes, uncomplicated; Z86.14 Personal history of Methicillin resistant Staphylococcus aureus infection; Z90.49 Acquired absence of other specified parts of digestive tract; Z89.412 Acquired absence of left great toe; Z89.421 Acquired absence of other right toe(s); Z99.3 Dependence on wheelchair; Y83.8 Other surgical procedures as the cause of abnormal reaction of the patient, or of later complication, without mention of misadventure at the time of the procedure | CPT/HCPCS: 97597; C5275; Q4166 ==

== ENCOUNTER → 2019-07-20 | Outpatient (CLI) | payer MEDICARE, MEDICAID | END | disposition home or self-care (01) | LOC: CVU 12:12 | PROVIDERS: ATTEND Nurse Practitioner Family | DX: L89.513 Pressure ulcer of right ankle, stage 3 (principal) | CPT/HCPCS: 93922; 93925 ==

== ENCOUNTER → 2019-07-24 | Outpatient (CLI) | payer MEDICARE, MEDICAID | END | disposition home or self-care (01) | LOC: WOUND 13:41 | PROVIDERS: ATTEND Nurse Practitioner Family | DX: T81.33XD Disruption of traumatic injury wound repair, subsequent encounter (principal); L89.896 Pressure-induced deep tissue damage of other site; L89.513 Pressure ulcer of right ankle, stage 3; L97.311 Non-pressure chronic ulcer of right ankle limited to breakdown of skin; L97.321 Non-pressure chronic ulcer of left ankle limited to breakdown of skin; L97.511 Non-pressure chronic ulcer of other part of right foot limited to breakdown of skin; L97.521 Non-pressure chronic ulcer of other part of left foot limited to breakdown of skin; L97.411 Non-pressure chronic ulcer of right heel and midfoot limited to breakdown of skin; G62.9 Polyneuropathy, unspecified; G82.20 Paraplegia, unspecified; M86.671 Other chronic osteomyelitis, right ankle and foot; M86.672 Other chronic osteomyelitis, left ankle and foot; F32.9 Major depressive disorder, single episode, unspecified; F19.10 Other psychoactive substance abuse, uncomplicated; F17.210 Nicotine dependence, cigarettes, uncomplicated; Z86.14 Personal history of Methicillin resistant Staphylococcus aureus infection; Z90.49 Acquired absence of other specified parts of digestive tract; Z89.412 Acquired absence of left great toe; Z89.421 Acquired absence of other right toe(s); Z99.2 Dependence on renal dialysis; Y83.8 Other surgical procedures as the cause of abnormal reaction of the patient, or of later complication, without mention of misadventure at the time of the procedure | CPT/HCPCS: 97597 ==

== ENCOUNTER 2019-08-03 10:41 | Outpatient (CLI) | payer MEDICARE, MEDICAID | END 2019-08-03 23:59 | disposition home or self-care (01) | LOC: WOUND 10:41 | PROVIDERS: ATTEND Family Medicine | DX: L89.896 Pressure-induced deep tissue damage of other site (principal); L89.513 Pressure ulcer of right ankle, stage 3; L97.311 Non-pressure chronic ulcer of right ankle limited to breakdown of skin; L97.321 Non-pressure chronic ulcer of left ankle limited to breakdown of skin; L97.511 Non-pressure chronic ulcer of other part of right foot limited to breakdown of skin; L97.521 Non-pressure chronic ulcer of other part of left foot limited to breakdown of skin; L97.411 Non-pressure chronic ulcer of right heel and midfoot limited to breakdown of skin; T81.33XD Disruption of traumatic injury wound repair, subsequent encounter; G62.9 Polyneuropathy, unspecified; G82.20 Paraplegia, unspecified; M86.671 Other chronic osteomyelitis, right ankle and foot; M86.672 Other chronic osteomyelitis, left ankle and foot; F32.9 Major depressive disorder, single episode, unspecified; F19.10 Other psychoactive substance abuse, uncomplicated; F17.210 Nicotine dependence, cigarettes, uncomplicated; Z86.14 Personal history of Methicillin resistant Staphylococcus aureus infection; Z90.49 Acquired absence of other specified parts of digestive tract; Z89.412 Acquired absence of left great toe; Z89.421 Acquired absence of other right toe(s); Z99.2 Dependence on renal dialysis; Y83.8 Other surgical procedures as the cause of abnormal reaction of the patient, or of later complication, without mention of misadventure at the time of the procedure | CPT/HCPCS: 97597 ==

== ENCOUNTER 2019-08-07 10:57 | Outpatient (CLI) | payer MEDICARE, MEDICAID | END 2019-08-07 23:59 | disposition home or self-care (01) | LOC: WOUND 10:57 | PROVIDERS: ATTEND Nurse Practitioner Family | DX: T81.33XD Disruption of traumatic injury wound repair, subsequent encounter (principal); L89.896 Pressure-induced deep tissue damage of other site; L89.513 Pressure ulcer of right ankle, stage 3; L97.311 Non-pressure chronic ulcer of right ankle limited to breakdown of skin; L97.321 Non-pressure chronic ulcer of left ankle limited to breakdown of skin; L97.511 Non-pressure chronic ulcer of other part of right foot limited to breakdown of skin; L97.521 Non-pressure chronic ulcer of other part of left foot limited to breakdown of skin; L97.411 Non-pressure chronic ulcer of right heel and midfoot limited to breakdown of skin; G62.9 Polyneuropathy, unspecified; G82.20 Paraplegia, unspecified; M86.671 Other chronic osteomyelitis, right ankle and foot; M86.672 Other chronic osteomyelitis, left ankle and foot; F32.9 Major depressive disorder, single episode, unspecified; F19.10 Other psychoactive substance abuse, uncomplicated; F17.210 Nicotine dependence, cigarettes, uncomplicated; Z86.14 Personal history of Methicillin resistant Staphylococcus aureus infection; Z90.49 Acquired absence of other specified parts of digestive tract; Z89.412 Acquired absence of left great toe; Z89.421 Acquired absence of other right toe(s); Z99.2 Dependence on renal dialysis; Y83.8 Other surgical procedures as the cause of abnormal reaction of the patient, or of later complication, without mention of misadventure at the time of the procedure | CPT/HCPCS: 97597 ==

== ENCOUNTER → 2019-08-14 | Outpatient (CLI) | payer MEDICARE, MEDICAID | END | disposition home or self-care (01) | LOC: WOUND 10:18 | PROVIDERS: ATTEND Nurse Practitioner Family | DX: T81.33XD Disruption of traumatic injury wound repair, subsequent encounter (principal); L89.896 Pressure-induced deep tissue damage of other site; L89.513 Pressure ulcer of right ankle, stage 3; L97.311 Non-pressure chronic ulcer of right ankle limited to breakdown of skin; L97.321 Non-pressure chronic ulcer of left ankle limited to breakdown of skin; L97.521 Non-pressure chronic ulcer of other part of left foot limited to breakdown of skin; L97.411 Non-pressure chronic ulcer of right heel and midfoot limited to breakdown of skin; G62.9 Polyneuropathy, unspecified; G82.20 Paraplegia, unspecified; M86.671 Other chronic osteomyelitis, right ankle and foot; M86.672 Other chronic osteomyelitis, left ankle and foot; F32.9 Major depressive disorder, single episode, unspecified; F19.10 Other psychoactive substance abuse, uncomplicated; F17.210 Nicotine dependence, cigarettes, uncomplicated; Z86.14 Personal history of Methicillin resistant Staphylococcus aureus infection; Z90.49 Acquired absence of other specified parts of digestive tract; Z89.412 Acquired absence of left great toe; Z89.421 Acquired absence of other right toe(s); Z99.2 Dependence on renal dialysis; Y83.8 Other surgical procedures as the cause of abnormal reaction of the patient, or of later complication, without mention of misadventure at the time of the procedure | CPT/HCPCS: 97597 ==

== ENCOUNTER → 2019-08-28 | Outpatient (CLI) | payer MEDICARE, MEDICAID ==
[~2019-08-28] MED LIST changes: +CEFD300C37 PO; +GABA300C PO
== END | disposition home or self-care (01) ==
LOC: WOUND 13:18
PROVIDERS: ATTEND Nurse Practitioner Family
DX: T81.33XD Disruption of traumatic injury wound repair, subsequent encounter (principal); L89.896 Pressure-induced deep tissue damage of other site; L89.513 Pressure ulcer of right ankle, stage 3; L97.311 Non-pressure chronic ulcer of right ankle limited to breakdown of skin; L97.321 Non-pressure chronic ulcer of left ankle limited to breakdown of skin; L97.521 Non-pressure chronic ulcer of other part of left foot limited to breakdown of skin; L97.411 Non-pressure chronic ulcer of right heel and midfoot limited to breakdown of skin; G62.9 Polyneuropathy, unspecified; G82.20 Paraplegia, unspecified; M86.671 Other chronic osteomyelitis, right ankle and foot; M86.672 Other chronic osteomyelitis, left ankle and foot; F32.9 Major depressive disorder, single episode, unspecified; F19.10 Other psychoactive substance abuse, uncomplicated; F17.210 Nicotine dependence, cigarettes, uncomplicated; Z86.14 Personal history of Methicillin resistant Staphylococcus aureus infection; Z90.49 Acquired absence of other specified parts of digestive tract; Z89.412 Acquired absence of left great toe; Z89.421 Acquired absence of other right toe(s); Z99.2 Dependence on renal dialysis; Y83.8 Other surgical procedures as the cause of abnormal reaction of the patient, or of later complication, without mention of misadventure at the time of the procedure
CPT/HCPCS: 97597

== ENCOUNTER → 2019-09-04 | Outpatient (CLI) | payer MEDICARE, MEDICAID | END | disposition home or self-care (01) | LOC: WOUND 10:48 | PROVIDERS: ATTEND Nurse Practitioner Family | DX: T81.33XD Disruption of traumatic injury wound repair, subsequent encounter (principal); L89.896 Pressure-induced deep tissue damage of other site; L89.513 Pressure ulcer of right ankle, stage 3; L97.311 Non-pressure chronic ulcer of right ankle limited to breakdown of skin; L97.521 Non-pressure chronic ulcer of other part of left foot limited to breakdown of skin; G62.9 Polyneuropathy, unspecified; G82.20 Paraplegia, unspecified; M86.671 Other chronic osteomyelitis, right ankle and foot; M86.672 Other chronic osteomyelitis, left ankle and foot; F32.9 Major depressive disorder, single episode, unspecified; F19.10 Other psychoactive substance abuse, uncomplicated; I96 Gangrene, not elsewhere classified; F12.10 Cannabis abuse, uncomplicated; F17.210 Nicotine dependence, cigarettes, uncomplicated; Z86.14 Personal history of Methicillin resistant Staphylococcus aureus infection; Z90.49 Acquired absence of other specified parts of digestive tract; Z89.412 Acquired absence of left great toe; Z89.421 Acquired absence of other right toe(s); Z99.2 Dependence on renal dialysis; Y83.8 Other surgical procedures as the cause of abnormal reaction of the patient, or of later complication, without mention of misadventure at the time of the procedure | CPT/HCPCS: 97597 ==

== ENCOUNTER 2019-09-11 08:48 | Outpatient (CLI) | payer MEDICARE, MEDICAID | END 2019-09-11 23:59 | disposition home or self-care (01) | LOC: WOUND 08:48 | PROVIDERS: ATTEND Nurse Practitioner Family | DX: L97.521 Non-pressure chronic ulcer of other part of left foot limited to breakdown of skin (principal); L89.896 Pressure-induced deep tissue damage of other site; G62.9 Polyneuropathy, unspecified; G82.20 Paraplegia, unspecified; M86.671 Other chronic osteomyelitis, right ankle and foot; M86.672 Other chronic osteomyelitis, left ankle and foot; F32.9 Major depressive disorder, single episode, unspecified; F19.10 Other psychoactive substance abuse, uncomplicated; I96 Gangrene, not elsewhere classified; F12.10 Cannabis abuse, uncomplicated; F17.210 Nicotine dependence, cigarettes, uncomplicated; Z86.14 Personal history of Methicillin resistant Staphylococcus aureus infection; Z90.49 Acquired absence of other specified parts of digestive tract; Z89.412 Acquired absence of left great toe; Z89.421 Acquired absence of other right toe(s); Z99.2 Dependence on renal dialysis | CPT/HCPCS: 99214; G0463 ==

== ENCOUNTER → 2019-09-25 | Outpatient (CLI) | payer MEDICARE, MEDICAID | END | disposition home or self-care (01) | LOC: WOUND 08:36 | PROVIDERS: ATTEND Surgery | DX: L89.896 Pressure-induced deep tissue damage of other site (principal); G62.9 Polyneuropathy, unspecified; G82.20 Paraplegia, unspecified; M86.671 Other chronic osteomyelitis, right ankle and foot; M86.672 Other chronic osteomyelitis, left ankle and foot; F32.9 Major depressive disorder, single episode, unspecified; F19.10 Other psychoactive substance abuse, uncomplicated; I96 Gangrene, not elsewhere classified; F12.10 Cannabis abuse, uncomplicated; F17.210 Nicotine dependence, cigarettes, uncomplicated; Z86.14 Personal history of Methicillin resistant Staphylococcus aureus infection; Z90.49 Acquired absence of other specified parts of digestive tract; Z89.412 Acquired absence of left great toe; Z89.421 Acquired absence of other right toe(s); Z99.2 Dependence on renal dialysis | CPT/HCPCS: G0463 ==

== ENCOUNTER → 2019-10-09 | Outpatient (CLI) | payer MEDICARE, MEDICAID | END | disposition home or self-care (01) | LOC: WOUND 09:08 | PROVIDERS: ATTEND Internal Medicine Infectious Disease | DX: L89.896 Pressure-induced deep tissue damage of other site (principal); L97.521 Non-pressure chronic ulcer of other part of left foot limited to breakdown of skin; S90.415D Abrasion, left lesser toe(s), subsequent encounter; G62.9 Polyneuropathy, unspecified; G82.20 Paraplegia, unspecified; M86.671 Other chronic osteomyelitis, right ankle and foot; M86.672 Other chronic osteomyelitis, left ankle and foot; F32.9 Major depressive disorder, single episode, unspecified; F19.10 Other psychoactive substance abuse, uncomplicated; I96 Gangrene, not elsewhere classified; F12.10 Cannabis abuse, uncomplicated; F17.210 Nicotine dependence, cigarettes, uncomplicated; Z86.14 Personal history of Methicillin resistant Staphylococcus aureus infection; Z90.49 Acquired absence of other specified parts of digestive tract; Z89.412 Acquired absence of left great toe; Z89.421 Acquired absence of other right toe(s); Z99.2 Dependence on renal dialysis; X58.XXXD Exposure to other specified factors, subsequent encounter | CPT/HCPCS: 97597 ==

== ENCOUNTER → 2019-10-16 | Outpatient (CLI) | payer MEDICARE, MEDICAID | END | disposition home or self-care (01) | LOC: WOUND 10:27 | PROVIDERS: ATTEND Internal Medicine Infectious Disease | DX: L89.896 Pressure-induced deep tissue damage of other site (principal); L97.521 Non-pressure chronic ulcer of other part of left foot limited to breakdown of skin; S90.415D Abrasion, left lesser toe(s), subsequent encounter; G62.9 Polyneuropathy, unspecified; G82.20 Paraplegia, unspecified; M86.671 Other chronic osteomyelitis, right ankle and foot; M86.672 Other chronic osteomyelitis, left ankle and foot; F32.9 Major depressive disorder, single episode, unspecified; F19.10 Other psychoactive substance abuse, uncomplicated; I96 Gangrene, not elsewhere classified; F12.10 Cannabis abuse, uncomplicated; F17.210 Nicotine dependence, cigarettes, uncomplicated; Z86.14 Personal history of Methicillin resistant Staphylococcus aureus infection; Z90.49 Acquired absence of other specified parts of digestive tract; Z89.412 Acquired absence of left great toe; Z89.421 Acquired absence of other right toe(s); Z99.2 Dependence on renal dialysis; X58.XXXD Exposure to other specified factors, subsequent encounter | CPT/HCPCS: C5275; Q4166 ==

== ENCOUNTER → 2019-10-23 | Outpatient (CLI) | payer MEDICARE, MEDICAID | END | disposition home or self-care (01) | LOC: WOUND 09:04 | PROVIDERS: ATTEND Nurse Practitioner Family | DX: L89.896 Pressure-induced deep tissue damage of other site (principal); L97.522 Non-pressure chronic ulcer of other part of left foot with fat layer exposed; S90.415D Abrasion, left lesser toe(s), subsequent encounter; G62.9 Polyneuropathy, unspecified; G82.20 Paraplegia, unspecified; M86.671 Other chronic osteomyelitis, right ankle and foot; M86.672 Other chronic osteomyelitis, left ankle and foot; F32.9 Major depressive disorder, single episode, unspecified; F19.10 Other psychoactive substance abuse, uncomplicated; I96 Gangrene, not elsewhere classified; F12.10 Cannabis abuse, uncomplicated; F17.210 Nicotine dependence, cigarettes, uncomplicated; Z86.14 Personal history of Methicillin resistant Staphylococcus aureus infection; Z90.49 Acquired absence of other specified parts of digestive tract; Z89.412 Acquired absence of left great toe; Z89.421 Acquired absence of other right toe(s); Z99.2 Dependence on renal dialysis; X58.XXXD Exposure to other specified factors, subsequent encounter | CPT/HCPCS: G0463 ==

== ENCOUNTER → 2019-11-06 | Outpatient (CLI) | payer MEDICARE, MEDICAID | END | disposition home or self-care (01) | LOC: WOUND 09:10 | PROVIDERS: ATTEND Nurse Practitioner Family | DX: L89.896 Pressure-induced deep tissue damage of other site (principal); L97.522 Non-pressure chronic ulcer of other part of left foot with fat layer exposed; S90.415D Abrasion, left lesser toe(s), subsequent encounter; L03.115 Cellulitis of right lower limb; L03.116 Cellulitis of left lower limb; G82.20 Paraplegia, unspecified; M86.172 Other acute osteomyelitis, left ankle and foot; M86.171 Other acute osteomyelitis, right ankle and foot; G62.9 Polyneuropathy, unspecified; F19.10 Other psychoactive substance abuse, uncomplicated; F32.9 Major depressive disorder, single episode, unspecified; F17.210 Nicotine dependence, cigarettes, uncomplicated; Z86.14 Personal history of Methicillin resistant Staphylococcus aureus infection; Z89.421 Acquired absence of other right toe(s); Z99.2 Dependence on renal dialysis; Z89.422 Acquired absence of other left toe(s); Z90.49 Acquired absence of other specified parts of digestive tract; Z89.412 Acquired absence of left great toe; X58.XXXD Exposure to other specified factors, subsequent encounter | CPT/HCPCS: G0463 ==

== ENCOUNTER 2019-11-27 09:01 | Outpatient (CLI) | payer MEDICARE, MEDICAID | END 2019-11-27 23:59 | disposition home or self-care (01) | LOC: WOUND 09:01 | PROVIDERS: ATTEND Nurse Practitioner Family | DX: L97.522 Non-pressure chronic ulcer of other part of left foot with fat layer exposed (principal); S90.415D Abrasion, left lesser toe(s), subsequent encounter; L03.115 Cellulitis of right lower limb; L03.116 Cellulitis of left lower limb; G82.20 Paraplegia, unspecified; M86.172 Other acute osteomyelitis, left ankle and foot; M86.171 Other acute osteomyelitis, right ankle and foot; G62.9 Polyneuropathy, unspecified; F19.10 Other psychoactive substance abuse, uncomplicated; F32.9 Major depressive disorder, single episode, unspecified; F12.10 Cannabis abuse, uncomplicated; I96 Gangrene, not elsewhere classified; M86.672 Other chronic osteomyelitis, left ankle and foot; M86.671 Other chronic osteomyelitis, right ankle and foot; F17.210 Nicotine dependence, cigarettes, uncomplicated; Z86.14 Personal history of Methicillin resistant Staphylococcus aureus infection; Z99.2 Dependence on renal dialysis; Z89.421 Acquired absence of other right toe(s); Z89.422 Acquired absence of other left toe(s); Z89.412 Acquired absence of left great toe; Z90.49 Acquired absence of other specified parts of digestive tract; X58.XXXD Exposure to other specified factors, subsequent encounter | CPT/HCPCS: 99213; G0463 ==

== ENCOUNTER → 2019-12-18 | Outpatient (CLI) | payer MEDICARE, MEDICAID | END | disposition home or self-care (01) | LOC: WOUND 09:31 | PROVIDERS: ATTEND Internal Medicine Infectious Disease | DX: L97.522 Non-pressure chronic ulcer of other part of left foot with fat layer exposed (principal); S90.415D Abrasion, left lesser toe(s), subsequent encounter; L03.115 Cellulitis of right lower limb; L03.116 Cellulitis of left lower limb; G82.20 Paraplegia, unspecified; M86.172 Other acute osteomyelitis, left ankle and foot; M86.171 Other acute osteomyelitis, right ankle and foot; M86.672 Other chronic osteomyelitis, left ankle and foot; M86.671 Other chronic osteomyelitis, right ankle and foot; G62.9 Polyneuropathy, unspecified; F19.10 Other psychoactive substance abuse, uncomplicated; F32.9 Major depressive disorder, single episode, unspecified; F12.10 Cannabis abuse, uncomplicated; I96 Gangrene, not elsewhere classified; F17.210 Nicotine dependence, cigarettes, uncomplicated; Z86.14 Personal history of Methicillin resistant Staphylococcus aureus infection; Z99.2 Dependence on renal dialysis; Z89.421 Acquired absence of other right toe(s); Z89.422 Acquired absence of other left toe(s); Z89.412 Acquired absence of left great toe; Z90.49 Acquired absence of other specified parts of digestive tract; X58.XXXD Exposure to other specified factors, subsequent encounter | CPT/HCPCS: G0463 ==

== ENCOUNTER → 2020-01-08 | Outpatient (CLI) | payer MEDICARE, MEDICAID | END | disposition home or self-care (01) | LOC: WOUND 09:16 | PROVIDERS: ATTEND Nurse Practitioner Family | DX: L97.522 Non-pressure chronic ulcer of other part of left foot with fat layer exposed (principal); S90.415D Abrasion, left lesser toe(s), subsequent encounter; G90.09 Other idiopathic peripheral autonomic neuropathy; G82.20 Paraplegia, unspecified; M86.172 Other acute osteomyelitis, left ankle and foot; M86.171 Other acute osteomyelitis, right ankle and foot; F32.9 Major depressive disorder, single episode, unspecified; F17.210 Nicotine dependence, cigarettes, uncomplicated; Z89.421 Acquired absence of other right toe(s); Z90.49 Acquired absence of other specified parts of digestive tract; Z89.412 Acquired absence of left great toe; Z86.14 Personal history of Methicillin resistant Staphylococcus aureus infection; X58.XXXD Exposure to other specified factors, subsequent encounter | CPT/HCPCS: 97597 ==

== ENCOUNTER 2020-01-15 09:20 | Outpatient (CLI) | payer MEDICARE, MEDICAID | END 2020-01-15 23:59 | disposition home or self-care (01) | LOC: WOUND 09:20 | PROVIDERS: ATTEND Nurse Practitioner Family | DX: L97.522 Non-pressure chronic ulcer of other part of left foot with fat layer exposed (principal); L97.511 Non-pressure chronic ulcer of other part of right foot limited to breakdown of skin; S90.415D Abrasion, left lesser toe(s), subsequent encounter; L03.115 Cellulitis of right lower limb; G90.09 Other idiopathic peripheral autonomic neuropathy; M86.672 Other chronic osteomyelitis, left ankle and foot; M86.671 Other chronic osteomyelitis, right ankle and foot; M86.172 Other acute osteomyelitis, left ankle and foot; M86.171 Other acute osteomyelitis, right ankle and foot; F32.9 Major depressive disorder, single episode, unspecified; F19.10 Other psychoactive substance abuse, uncomplicated; G82.20 Paraplegia, unspecified; I96 Gangrene, not elsewhere classified; F17.210 Nicotine dependence, cigarettes, uncomplicated; F12.10 Cannabis abuse, uncomplicated; Z90.49 Acquired absence of other specified parts of digestive tract; Z89.421 Acquired absence of other right toe(s); Z89.412 Acquired absence of left great toe; Z89.422 Acquired absence of other left toe(s); Z86.14 Personal history of Methicillin resistant Staphylococcus aureus infection; Z99.2 Dependence on renal dialysis; X58.XXXD Exposure to other specified factors, subsequent encounter | CPT/HCPCS: 97597 ==

== ENCOUNTER → 2020-01-22 | Outpatient (CLI) | payer MEDICARE, MEDICAID | END | disposition home or self-care (01) | LOC: WOUND 10:34 | PROVIDERS: ATTEND Nurse Practitioner Family | DX: L97.522 Non-pressure chronic ulcer of other part of left foot with fat layer exposed (principal); L97.512 Non-pressure chronic ulcer of other part of right foot with fat layer exposed; S90.415D Abrasion, left lesser toe(s), subsequent encounter; G90.09 Other idiopathic peripheral autonomic neuropathy; M86.672 Other chronic osteomyelitis, left ankle and foot; M86.671 Other chronic osteomyelitis, right ankle and foot; M86.172 Other acute osteomyelitis, left ankle and foot; M86.171 Other acute osteomyelitis, right ankle and foot; F32.9 Major depressive disorder, single episode, unspecified; F19.10 Other psychoactive substance abuse, uncomplicated; G82.20 Paraplegia, unspecified; I96 Gangrene, not elsewhere classified; F17.210 Nicotine dependence, cigarettes, uncomplicated; F12.10 Cannabis abuse, uncomplicated; Z90.49 Acquired absence of other specified parts of digestive tract; Z89.421 Acquired absence of other right toe(s); Z89.412 Acquired absence of left great toe; Z89.422 Acquired absence of other left toe(s); Z86.14 Personal history of Methicillin resistant Staphylococcus aureus infection; Z99.2 Dependence on renal dialysis; X58.XXXD Exposure to other specified factors, subsequent encounter | CPT/HCPCS: G0463 ==

== ENCOUNTER → 2020-01-29 | Outpatient (CLI) | payer MEDICARE, MEDICAID | END | disposition home or self-care (01) | LOC: WOUND 10:00 | PROVIDERS: ATTEND Internal Medicine Infectious Disease | DX: L97.522 Non-pressure chronic ulcer of other part of left foot with fat layer exposed (principal); L97.412 Non-pressure chronic ulcer of right heel and midfoot with fat layer exposed; L97.512 Non-pressure chronic ulcer of other part of right foot with fat layer exposed; L89.516 Pressure-induced deep tissue damage of right ankle; L97.312 Non-pressure chronic ulcer of right ankle with fat layer exposed; L03.115 Cellulitis of right lower limb; S90.415D Abrasion, left lesser toe(s), subsequent encounter; G90.09 Other idiopathic peripheral autonomic neuropathy; M86.672 Other chronic osteomyelitis, left ankle and foot; M86.671 Other chronic osteomyelitis, right ankle and foot; M86.172 Other acute osteomyelitis, left ankle and foot; M86.171 Other acute osteomyelitis, right ankle and foot; F32.9 Major depressive disorder, single episode, unspecified; F19.10 Other psychoactive substance abuse, uncomplicated; G82.20 Paraplegia, unspecified; I96 Gangrene, not elsewhere classified; F17.210 Nicotine dependence, cigarettes, uncomplicated; F12.10 Cannabis abuse, uncomplicated; Z90.49 Acquired absence of other specified parts of digestive tract; Z89.421 Acquired absence of other right toe(s); Z89.412 Acquired absence of left great toe; Z89.422 Acquired absence of other left toe(s); Z86.14 Personal history of Methicillin resistant Staphylococcus aureus infection; Z99.2 Dependence on renal dialysis; X58.XXXD Exposure to other specified factors, subsequent encounter | CPT/HCPCS: 11042; 87070; 87077; 87186; 87205; 97597 ==

== ENCOUNTER → 2020-02-05 | Outpatient (CLI) | payer MEDICARE, MEDICAID | END | disposition home or self-care (01) | LOC: WOUND 09:44 | PROVIDERS: ATTEND Nurse Practitioner Family | DX: L97.522 Non-pressure chronic ulcer of other part of left foot with fat layer exposed (principal); L97.412 Non-pressure chronic ulcer of right heel and midfoot with fat layer exposed; L97.512 Non-pressure chronic ulcer of other part of right foot with fat layer exposed; L89.516 Pressure-induced deep tissue damage of right ankle; L97.312 Non-pressure chronic ulcer of right ankle with fat layer exposed; L03.115 Cellulitis of right lower limb; S90.415D Abrasion, left lesser toe(s), subsequent encounter; G90.09 Other idiopathic peripheral autonomic neuropathy; M86.672 Other chronic osteomyelitis, left ankle and foot; M86.671 Other chronic osteomyelitis, right ankle and foot; M86.172 Other acute osteomyelitis, left ankle and foot; M86.171 Other acute osteomyelitis, right ankle and foot; F32.9 Major depressive disorder, single episode, unspecified; F19.10 Other psychoactive substance abuse, uncomplicated; G82.20 Paraplegia, unspecified; I96 Gangrene, not elsewhere classified; F17.210 Nicotine dependence, cigarettes, uncomplicated; F12.10 Cannabis abuse, uncomplicated; Z90.49 Acquired absence of other specified parts of digestive tract; Z89.421 Acquired absence of other right toe(s); Z89.412 Acquired absence of left great toe; Z89.422 Acquired absence of other left toe(s); Z86.14 Personal history of Methicillin resistant Staphylococcus aureus infection; Z99.2 Dependence on renal dialysis; X58.XXXD Exposure to other specified factors, subsequent encounter | CPT/HCPCS: 97597 ==

== ENCOUNTER → 2020-02-12 | Outpatient (CLI) | payer MEDICARE, MEDICAID | END | disposition home or self-care (01) | LOC: WOUND 10:17 | PROVIDERS: ATTEND Nurse Practitioner Family | DX: L97.526 Non-pressure chronic ulcer of other part of left foot with bone involvement without evidence of necrosis (principal); L97.412 Non-pressure chronic ulcer of right heel and midfoot with fat layer exposed; L97.512 Non-pressure chronic ulcer of other part of right foot with fat layer exposed; L89.516 Pressure-induced deep tissue damage of right ankle; L97.312 Non-pressure chronic ulcer of right ankle with fat layer exposed; L03.115 Cellulitis of right lower limb; S90.821D Blister (nonthermal), right foot, subsequent encounter; S90.415D Abrasion, left lesser toe(s), subsequent encounter; G90.09 Other idiopathic peripheral autonomic neuropathy; M86.672 Other chronic osteomyelitis, left ankle and foot; M86.671 Other chronic osteomyelitis, right ankle and foot; M86.172 Other acute osteomyelitis, left ankle and foot; M86.171 Other acute osteomyelitis, right ankle and foot; F32.9 Major depressive disorder, single episode, unspecified; F19.10 Other psychoactive substance abuse, uncomplicated; G82.20 Paraplegia, unspecified; I96 Gangrene, not elsewhere classified; F17.210 Nicotine dependence, cigarettes, uncomplicated; F12.10 Cannabis abuse, uncomplicated; Z90.49 Acquired absence of other specified parts of digestive tract; Z89.421 Acquired absence of other right toe(s); Z89.412 Acquired absence of left great toe; Z89.422 Acquired absence of other left toe(s); Z86.14 Personal history of Methicillin resistant Staphylococcus aureus infection; Z99.2 Dependence on renal dialysis; X58.XXXD Exposure to other specified factors, subsequent encounter | CPT/HCPCS: 97597; C5275; Q4118; Q4166; 15275 ==

== ENCOUNTER 2020-02-26 08:48 | Outpatient (CLI) | payer MEDICARE, MEDICAID | END 2020-02-26 23:59 | disposition home or self-care (01) | LOC: WOUND 08:48 | PROVIDERS: ATTEND Nurse Practitioner Family | DX: L97.412 Non-pressure chronic ulcer of right heel and midfoot with fat layer exposed (principal); L89.516 Pressure-induced deep tissue damage of right ankle; L97.312 Non-pressure chronic ulcer of right ankle with fat layer exposed; L97.522 Non-pressure chronic ulcer of other part of left foot with fat layer exposed; L97.512 Non-pressure chronic ulcer of other part of right foot with fat layer exposed; S90.821D Blister (nonthermal), right foot, subsequent encounter; S90.415D Abrasion, left lesser toe(s), subsequent encounter; L03.115 Cellulitis of right lower limb; G90.09 Other idiopathic peripheral autonomic neuropathy; M86.672 Other chronic osteomyelitis, left ankle and foot; M86.671 Other chronic osteomyelitis, right ankle and foot; M86.172 Other acute osteomyelitis, left ankle and foot; M86.171 Other acute osteomyelitis, right ankle and foot; F32.9 Major depressive disorder, single episode, unspecified; F19.10 Other psychoactive substance abuse, uncomplicated; G82.20 Paraplegia, unspecified; I96 Gangrene, not elsewhere classified; F17.210 Nicotine dependence, cigarettes, uncomplicated; F12.10 Cannabis abuse, uncomplicated; Z90.49 Acquired absence of other specified parts of digestive tract; Z89.421 Acquired absence of other right toe(s); Z89.422 Acquired absence of other left toe(s); Z89.412 Acquired absence of left great toe; Z86.14 Personal history of Methicillin resistant Staphylococcus aureus infection; Z99.2 Dependence on renal dialysis; X58.XXXD Exposure to other specified factors, subsequent encounter | CPT/HCPCS: 97597; C5275; Q4166; 15275 ==

== ENCOUNTER → 2020-03-04 | Outpatient (CLI) | payer MEDICARE, MEDICAID | END | disposition home or self-care (01) | LOC: WOUND 09:45 | PROVIDERS: ATTEND Nurse Practitioner Family | DX: L97.412 Non-pressure chronic ulcer of right heel and midfoot with fat layer exposed (principal); L89.516 Pressure-induced deep tissue damage of right ankle; L97.312 Non-pressure chronic ulcer of right ankle with fat layer exposed; L97.522 Non-pressure chronic ulcer of other part of left foot with fat layer exposed; L97.512 Non-pressure chronic ulcer of other part of right foot with fat layer exposed; S90.821D Blister (nonthermal), right foot, subsequent encounter; S90.415D Abrasion, left lesser toe(s), subsequent encounter; L03.115 Cellulitis of right lower limb; G90.09 Other idiopathic peripheral autonomic neuropathy; M86.672 Other chronic osteomyelitis, left ankle and foot; M86.671 Other chronic osteomyelitis, right ankle and foot; M86.172 Other acute osteomyelitis, left ankle and foot; M86.171 Other acute osteomyelitis, right ankle and foot; F32.9 Major depressive disorder, single episode, unspecified; F19.10 Other psychoactive substance abuse, uncomplicated; G82.20 Paraplegia, unspecified; I96 Gangrene, not elsewhere classified; F17.210 Nicotine dependence, cigarettes, uncomplicated; F12.10 Cannabis abuse, uncomplicated; Z90.49 Acquired absence of other specified parts of digestive tract; Z89.421 Acquired absence of other right toe(s); Z89.422 Acquired absence of other left toe(s); Z89.412 Acquired absence of left great toe; Z86.14 Personal history of Methicillin resistant Staphylococcus aureus infection; Z99.2 Dependence on renal dialysis; X58.XXXD Exposure to other specified factors, subsequent encounter | CPT/HCPCS: 87070; 87205; 97597; C5275; Q4166; 15275 ==

== ENCOUNTER 2020-03-06 09:52 | Outpatient (CLI) | payer MEDICARE, MEDICAID, OTHER | END 2020-03-06 23:59 | disposition home or self-care (01) | LOC: RAD 09:52 | PROVIDERS: ATTEND Nurse Practitioner Family | DX: Z02.9 Encounter for administrative examinations, unspecified (principal) ==

== ENCOUNTER → 2020-03-11 | Outpatient (CLI) | payer MEDICARE, MEDICAID, OTHER | END | disposition home or self-care (01) | LOC: WOUND 09:45 | PROVIDERS: ATTEND Nurse Practitioner Family | DX: L97.412 Non-pressure chronic ulcer of right heel and midfoot with fat layer exposed (principal); L89.516 Pressure-induced deep tissue damage of right ankle; L97.312 Non-pressure chronic ulcer of right ankle with fat layer exposed; L97.522 Non-pressure chronic ulcer of other part of left foot with fat layer exposed; L97.512 Non-pressure chronic ulcer of other part of right foot with fat layer exposed; S90.821D Blister (nonthermal), right foot, subsequent encounter; S90.415D Abrasion, left lesser toe(s), subsequent encounter; L03.115 Cellulitis of right lower limb; G90.09 Other idiopathic peripheral autonomic neuropathy; M86.672 Other chronic osteomyelitis, left ankle and foot; M86.671 Other chronic osteomyelitis, right ankle and foot; M86.172 Other acute osteomyelitis, left ankle and foot; M86.171 Other acute osteomyelitis, right ankle and foot; F32.9 Major depressive disorder, single episode, unspecified; F19.10 Other psychoactive substance abuse, uncomplicated; G82.20 Paraplegia, unspecified; I96 Gangrene, not elsewhere classified; F17.210 Nicotine dependence, cigarettes, uncomplicated; F12.10 Cannabis abuse, uncomplicated; Z90.49 Acquired absence of other specified parts of digestive tract; Z89.421 Acquired absence of other right toe(s); Z89.422 Acquired absence of other left toe(s); Z89.412 Acquired absence of left great toe; Z86.14 Personal history of Methicillin resistant Staphylococcus aureus infection; Z99.2 Dependence on renal dialysis; X58.XXXD Exposure to other specified factors, subsequent encounter | CPT/HCPCS: 11042; 87070; 87077; 87186; 87205; 97597 ==

== ENCOUNTER → 2020-03-12 | Outpatient (CLI) | payer MEDICARE, MEDICAID | END | disposition home or self-care (01) | LOC: CVU 12:03 | PROVIDERS: ATTEND Nurse Practitioner Family | DX: S90.415D Abrasion, left lesser toe(s), subsequent encounter (principal); I82.890 Acute embolism and thrombosis of other specified veins; X58.XXXD Exposure to other specified factors, subsequent encounter | CPT/HCPCS: 93922; 93925; 93970 ==

== ENCOUNTER 2020-03-17 12:51 | Outpatient (CLI) | payer MEDICARE, MEDICAID, OTHER ==
[2020-03-17] MEDS ORDERED: ALPRazolam 1MG TAB ONE (13:57)
== END 2020-03-17 23:59 | disposition home or self-care (01) ==
LOC: RAD 12:51
PROVIDERS: ATTEND Nurse Practitioner Family
DX: M86.172 Other acute osteomyelitis, left ankle and foot (principal)

== ENCOUNTER 2020-03-18 09:54 | Outpatient (CLI) | payer MEDICARE, MEDICAID | END 2020-03-18 23:59 | disposition home or self-care (01) | LOC: WOUND 09:54 | PROVIDERS: ATTEND Nurse Practitioner Family | DX: L97.412 Non-pressure chronic ulcer of right heel and midfoot with fat layer exposed (principal); L89.516 Pressure-induced deep tissue damage of right ankle; L97.312 Non-pressure chronic ulcer of right ankle with fat layer exposed; L97.522 Non-pressure chronic ulcer of other part of left foot with fat layer exposed; L97.512 Non-pressure chronic ulcer of other part of right foot with fat layer exposed; S90.821D Blister (nonthermal), right foot, subsequent encounter; S90.415D Abrasion, left lesser toe(s), subsequent encounter; L03.115 Cellulitis of right lower limb; G90.09 Other idiopathic peripheral autonomic neuropathy; M86.672 Other chronic osteomyelitis, left ankle and foot; M86.671 Other chronic osteomyelitis, right ankle and foot; M86.172 Other acute osteomyelitis, left ankle and foot; M86.171 Other acute osteomyelitis, right ankle and foot; F32.9 Major depressive disorder, single episode, unspecified; F19.10 Other psychoactive substance abuse, uncomplicated; G82.20 Paraplegia, unspecified; I96 Gangrene, not elsewhere classified; F17.210 Nicotine dependence, cigarettes, uncomplicated; F12.10 Cannabis abuse, uncomplicated; Z90.49 Acquired absence of other specified parts of digestive tract; Z89.421 Acquired absence of other right toe(s); Z89.422 Acquired absence of other left toe(s); Z89.412 Acquired absence of left great toe; Z86.14 Personal history of Methicillin resistant Staphylococcus aureus infection; Z99.2 Dependence on renal dialysis; X58.XXXD Exposure to other specified factors, subsequent encounter | CPT/HCPCS: 97597; 97598 ==

== ENCOUNTER 2020-03-19 12:04 | Outpatient (CLI) | payer MEDICARE, MEDICAID ==
[2020-03-19] MEDS ORDERED: FENTANYL PF 100 MCG/2ML ONE ×2 (12:54)
[2020-03-19] MEDS ORDERED: MIDAZOLAM 1 MG/ML, 5ML ONE (12:54)
[2020-03-19] MEDS ORDERED: GADOTERATE 7.5 MMOL/15 ML VIAL ONE (14:11)
== END 2020-03-19 23:59 | disposition home or self-care (01) ==
LOC: RAD 12:04
PROVIDERS: ATTEND Nurse Practitioner Family
DX: M86.171 Other acute osteomyelitis, right ankle and foot (principal); M20.41 Other hammer toe(s) (acquired), right foot; L97.521 Non-pressure chronic ulcer of other part of left foot limited to breakdown of skin; F12.90 Cannabis use, unspecified, uncomplicated; F17.210 Nicotine dependence, cigarettes, uncomplicated; Z79.899 Other long term (current) drug therapy; Z72.89 Other problems related to lifestyle; Z82.49 Family history of ischemic heart disease and other diseases of the circulatory system; Z83.3 Family history of diabetes mellitus
CPT/HCPCS: 73720; 99156; 99157; A9575; J2250; J3010

== ENCOUNTER → 2020-03-25 | Outpatient (CLI) | payer MEDICARE, MEDICAID | END | disposition home or self-care (01) | LOC: WOUND 13:00 | PROVIDERS: ATTEND Nurse Practitioner Family | DX: L97.412 Non-pressure chronic ulcer of right heel and midfoot with fat layer exposed (principal); L89.516 Pressure-induced deep tissue damage of right ankle; L97.312 Non-pressure chronic ulcer of right ankle with fat layer exposed; L97.522 Non-pressure chronic ulcer of other part of left foot with fat layer exposed; L97.512 Non-pressure chronic ulcer of other part of right foot with fat layer exposed; S90.821D Blister (nonthermal), right foot, subsequent encounter; S90.415D Abrasion, left lesser toe(s), subsequent encounter; L03.115 Cellulitis of right lower limb; G90.09 Other idiopathic peripheral autonomic neuropathy; M86.672 Other chronic osteomyelitis, left ankle and foot; M86.671 Other chronic osteomyelitis, right ankle and foot; M86.172 Other acute osteomyelitis, left ankle and foot; M86.171 Other acute osteomyelitis, right ankle and foot; F32.9 Major depressive disorder, single episode, unspecified; F19.10 Other psychoactive substance abuse, uncomplicated; G82.20 Paraplegia, unspecified; I96 Gangrene, not elsewhere classified; F17.210 Nicotine dependence, cigarettes, uncomplicated; F12.10 Cannabis abuse, uncomplicated; Z90.49 Acquired absence of other specified parts of digestive tract; Z89.421 Acquired absence of other right toe(s); Z89.422 Acquired absence of other left toe(s); Z89.412 Acquired absence of left great toe; Z86.14 Personal history of Methicillin resistant Staphylococcus aureus infection; Z99.2 Dependence on renal dialysis; X58.XXXD Exposure to other specified factors, subsequent encounter | CPT/HCPCS: 97597 ==

== ENCOUNTER → 2020-04-01 | Outpatient (CLI) | payer MEDICARE, MEDICAID, OTHER ==
[~2020-04-01] MED LIST changes: -OXYC5TAB3 PO; +OXYC5TAB98 PO
== END | disposition home or self-care (01) ==
LOC: WOUND 08:15
PROVIDERS: ATTEND Nurse Practitioner Family
DX: L97.412 Non-pressure chronic ulcer of right heel and midfoot with fat layer exposed (principal); L89.516 Pressure-induced deep tissue damage of right ankle; L97.312 Non-pressure chronic ulcer of right ankle with fat layer exposed; L97.522 Non-pressure chronic ulcer of other part of left foot with fat layer exposed; L97.512 Non-pressure chronic ulcer of other part of right foot with fat layer exposed; S90.821D Blister (nonthermal), right foot, subsequent encounter; S90.415D Abrasion, left lesser toe(s), subsequent encounter; L03.115 Cellulitis of right lower limb; G90.09 Other idiopathic peripheral autonomic neuropathy; M86.672 Other chronic osteomyelitis, left ankle and foot; M86.671 Other chronic osteomyelitis, right ankle and foot; M86.172 Other acute osteomyelitis, left ankle and foot; M86.171 Other acute osteomyelitis, right ankle and foot; G82.20 Paraplegia, unspecified; I96 Gangrene, not elsewhere classified; F32.9 Major depressive disorder, single episode, unspecified; F19.10 Other psychoactive substance abuse, uncomplicated; F17.210 Nicotine dependence, cigarettes, uncomplicated; F12.10 Cannabis abuse, uncomplicated; Z90.49 Acquired absence of other specified parts of digestive tract; Z89.421 Acquired absence of other right toe(s); Z89.422 Acquired absence of other left toe(s); Z89.412 Acquired absence of left great toe; Z86.14 Personal history of Methicillin resistant Staphylococcus aureus infection; Z99.2 Dependence on renal dialysis; X58.XXXD Exposure to other specified factors, subsequent encounter
CPT/HCPCS: 97597; 97598

== ENCOUNTER 2020-04-08 09:26 | Outpatient (CLI) | payer MEDICARE, MEDICAID, OTHER | END 2020-04-08 23:59 | disposition home or self-care (01) | LOC: EDSEX → WOUND 09:26 | PROVIDERS: ATTEND Nurse Practitioner Family | DX: L89.516 Pressure-induced deep tissue damage of right ankle (principal); L89.526 Pressure-induced deep tissue damage of left ankle; S90.415D Abrasion, left lesser toe(s), subsequent encounter; L97.412 Non-pressure chronic ulcer of right heel and midfoot with fat layer exposed; L97.312 Non-pressure chronic ulcer of right ankle with fat layer exposed; L97.522 Non-pressure chronic ulcer of other part of left foot with fat layer exposed; L97.512 Non-pressure chronic ulcer of other part of right foot with fat layer exposed; L03.115 Cellulitis of right lower limb; G90.09 Other idiopathic peripheral autonomic neuropathy; M86.672 Other chronic osteomyelitis, left ankle and foot; M86.671 Other chronic osteomyelitis, right ankle and foot; M86.172 Other acute osteomyelitis, left ankle and foot; M86.171 Other acute osteomyelitis, right ankle and foot; F32.9 Major depressive disorder, single episode, unspecified; F19.10 Other psychoactive substance abuse, uncomplicated; G82.20 Paraplegia, unspecified; I96 Gangrene, not elsewhere classified; F17.210 Nicotine dependence, cigarettes, uncomplicated; F12.10 Cannabis abuse, uncomplicated; Z90.49 Acquired absence of other specified parts of digestive tract; Z89.421 Acquired absence of other right toe(s); Z89.422 Acquired absence of other left toe(s); Z89.412 Acquired absence of left great toe; Z86.14 Personal history of Methicillin resistant Staphylococcus aureus infection; Z99.2 Dependence on renal dialysis; X58.XXXD Exposure to other specified factors, subsequent encounter; Z79.899 Other long term (current) drug therapy | CPT/HCPCS: 97597; 97598 ==

== ENCOUNTER → 2020-04-10 | Outpatient (CLI) | payer MEDICARE, MEDICAID, OTHER | END | disposition home or self-care (01) | LOC: EDSEX 12:26 → CVU 12:26 | PROVIDERS: ATTEND Nurse Practitioner Family | DX: L97.522 Non-pressure chronic ulcer of other part of left foot with fat layer exposed (principal); M86.172 Other acute osteomyelitis, left ankle and foot | CPT/HCPCS: 93922 ==

== ENCOUNTER → 2020-04-15 | Outpatient (CLI) | payer MEDICARE, MEDICAID, OTHER | END | disposition home or self-care (01) | LOC: EDSEX → WOUND 09:52 | PROVIDERS: ATTEND Nurse Practitioner Family | DX: L89.156 Pressure-induced deep tissue damage of sacral region (principal); L89.526 Pressure-induced deep tissue damage of left ankle; S90.415D Abrasion, left lesser toe(s), subsequent encounter; L97.412 Non-pressure chronic ulcer of right heel and midfoot with fat layer exposed; L97.312 Non-pressure chronic ulcer of right ankle with fat layer exposed; L97.522 Non-pressure chronic ulcer of other part of left foot with fat layer exposed; L97.512 Non-pressure chronic ulcer of other part of right foot with fat layer exposed; L03.115 Cellulitis of right lower limb; G90.09 Other idiopathic peripheral autonomic neuropathy; M86.672 Other chronic osteomyelitis, left ankle and foot; M86.671 Other chronic osteomyelitis, right ankle and foot; M86.172 Other acute osteomyelitis, left ankle and foot; M86.171 Other acute osteomyelitis, right ankle and foot; F32.9 Major depressive disorder, single episode, unspecified; F19.10 Other psychoactive substance abuse, uncomplicated; G82.20 Paraplegia, unspecified; I96 Gangrene, not elsewhere classified; F17.210 Nicotine dependence, cigarettes, uncomplicated; F12.10 Cannabis abuse, uncomplicated; Z90.49 Acquired absence of other specified parts of digestive tract; Z89.421 Acquired absence of other right toe(s); Z89.422 Acquired absence of other left toe(s); Z89.412 Acquired absence of left great toe; Z86.14 Personal history of Methicillin resistant Staphylococcus aureus infection; Z99.2 Dependence on renal dialysis; Z79.899 Other long term (current) drug therapy; X58.XXXD Exposure to other specified factors, subsequent encounter | CPT/HCPCS: 97597; 97598 ==

== ENCOUNTER → 2020-04-22 | Outpatient (CLI) | payer MEDICARE, MEDICAID, OTHER | END | disposition home or self-care (01) | LOC: WOUND 10:57 | PROVIDERS: ATTEND Nurse Practitioner Family | DX: L89.516 Pressure-induced deep tissue damage of right ankle (principal); L89.526 Pressure-induced deep tissue damage of left ankle; S90.415D Abrasion, left lesser toe(s), subsequent encounter; S90.414D Abrasion, right lesser toe(s), subsequent encounter; L97.412 Non-pressure chronic ulcer of right heel and midfoot with fat layer exposed; L97.312 Non-pressure chronic ulcer of right ankle with fat layer exposed; L97.522 Non-pressure chronic ulcer of other part of left foot with fat layer exposed; L97.512 Non-pressure chronic ulcer of other part of right foot with fat layer exposed; L03.115 Cellulitis of right lower limb; G90.09 Other idiopathic peripheral autonomic neuropathy; M86.672 Other chronic osteomyelitis, left ankle and foot; M86.671 Other chronic osteomyelitis, right ankle and foot; M86.172 Other acute osteomyelitis, left ankle and foot; M86.171 Other acute osteomyelitis, right ankle and foot; F32.9 Major depressive disorder, single episode, unspecified; F19.10 Other psychoactive substance abuse, uncomplicated; G82.20 Paraplegia, unspecified; I96 Gangrene, not elsewhere classified; F17.210 Nicotine dependence, cigarettes, uncomplicated; F12.10 Cannabis abuse, uncomplicated; Z90.49 Acquired absence of other specified parts of digestive tract; Z89.421 Acquired absence of other right toe(s); Z89.422 Acquired absence of other left toe(s); Z89.412 Acquired absence of left great toe; Z86.14 Personal history of Methicillin resistant Staphylococcus aureus infection; Z99.2 Dependence on renal dialysis; Z79.899 Other long term (current) drug therapy; X58.XXXD Exposure to other specified factors, subsequent encounter | CPT/HCPCS: 97597; 97598 ==

== ENCOUNTER 2020-04-29 09:05 | Outpatient (CLI) | payer MEDICARE, MEDICAID, OTHER | END 2020-04-29 23:59 | disposition home or self-care (01) | LOC: EDSEX → WOUND 09:05 | PROVIDERS: ATTEND Nurse Practitioner Family | DX: L89.516 Pressure-induced deep tissue damage of right ankle (principal); L89.526 Pressure-induced deep tissue damage of left ankle; L97.412 Non-pressure chronic ulcer of right heel and midfoot with fat layer exposed; L97.312 Non-pressure chronic ulcer of right ankle with fat layer exposed; L97.526 Non-pressure chronic ulcer of other part of left foot with bone involvement without evidence of necrosis; L97.512 Non-pressure chronic ulcer of other part of right foot with fat layer exposed; S90.415D Abrasion, left lesser toe(s), subsequent encounter; S90.414D Abrasion, right lesser toe(s), subsequent encounter; L03.115 Cellulitis of right lower limb; G90.09 Other idiopathic peripheral autonomic neuropathy; M86.672 Other chronic osteomyelitis, left ankle and foot; M86.671 Other chronic osteomyelitis, right ankle and foot; M86.172 Other acute osteomyelitis, left ankle and foot; M86.171 Other acute osteomyelitis, right ankle and foot; F32.9 Major depressive disorder, single episode, unspecified; F19.10 Other psychoactive substance abuse, uncomplicated; G82.20 Paraplegia, unspecified; I96 Gangrene, not elsewhere classified; F17.210 Nicotine dependence, cigarettes, uncomplicated; F12.10 Cannabis abuse, uncomplicated; Z90.49 Acquired absence of other specified parts of digestive tract; Z89.421 Acquired absence of other right toe(s); Z89.422 Acquired absence of other left toe(s); Z89.412 Acquired absence of left great toe; Z86.14 Personal history of Methicillin resistant Staphylococcus aureus infection; Z99.2 Dependence on renal dialysis; Z79.899 Other long term (current) drug therapy; X58.XXXD Exposure to other specified factors, subsequent encounter | CPT/HCPCS: 97597; 97598 ==

== ENCOUNTER 2020-05-01 08:04 | Day surgery (SDC) | payer MEDICARE, MEDICAID, OTHER ==
[~2020-05-01] VITALS: Ht 172.7 cm; Wt 57.0 kg
[~2020-05-01 08:04] MED LIST changes: +CEFAZOLIN 1,000 MG ONE; +DEXAMETHASONE 4 MG/ML, 1ML ONE; +FENTANYL PF 100 MCG/2ML ONE; +MIDAZOLAM 1 MG/ML, 2ML ONE; +ONDANSETRON 2MG/ML, 2ML ONE; +PROPOFOL 10 MG/ML, 20ML ONE
[2020-05-01] MEDS ORDERED: BUPIVACAINE/PF 0.5% ONE (08:19)
[2020-05-01] MEDS ORDERED: BACITRACIN OINT 500U/GM, 15 GM ONE (08:19)
[2020-05-01] MEDS ORDERED: EPINEPHRINE 1 MG/ML, 1ML ONE (08:20)
[2020-05-01] MEDS ORDERED: BACITRACIN 50,000 UNIT ONE (08:20)
[2020-05-01 08:26] VITALS: BP 124/86
[2020-05-01] MEDS ORDERED: CLIN300C9 PO (08:26)
[2020-05-01] MEDS ORDERED: CHLORHEXIDINE 15 ML UDC MM ONE (08:30)
[2020-05-01] MEDS ORDERED: LIDOCAINE-MPF 1%, 2ML INFIL ONE (08:30)
[2020-05-01] MEDS ORDERED: LACTATED RINGERS 1,000 ML IV SCH (08:30)
[2020-05-01] MEDS ORDERED: PROMETHAZINE 25 MG/ML, 1ML IVPush PRN (09:00)
[2020-05-01] MEDS ORDERED: MEPERIDINE/PF 25MG/0.5ML IVPush PRN (09:00)
[2020-05-01] MEDS ORDERED: KETOROLAC 30 MG/1 ML IVPush PRN (09:00)
[2020-05-01] MEDS ORDERED: HYDROmorphone 1 MG/ML, 1ML INJ IVPush PRN (09:00)
[2020-05-01] MEDS ORDERED: HYDROcodone/APAP 7.5-325MG/15ML UDC PO PRN (09:00)
[2020-05-01] MEDS ORDERED: OXYcodone 5 MG/5 ML ORAL.SOL UDC PO PRN (09:00)
[2020-05-01] MEDS ORDERED: ONDANSETRON 2MG/ML, 2ML IVPush PRN (09:00)
[2020-05-01] MEDS ORDERED: FENTANYL PF 100 MCG/2ML IV PRN (09:00)
[2020-05-01] MEDS ORDERED: HYDR-1067 PO (10:35)
== END 2020-05-01 12:45 | disposition home or self-care (01) ==
LOC: EDSEX 08:04 → OUT 08:04
PROVIDERS: ATTEND Surgery
DX: M86.8X7 Other osteomyelitis, ankle and foot (principal); I96 Gangrene, not elsewhere classified; L97.529 Non-pressure chronic ulcer of other part of left foot with unspecified severity; G82.20 Paraplegia, unspecified; I25.2 Old myocardial infarction; F12.90 Cannabis use, unspecified, uncomplicated; F17.210 Nicotine dependence, cigarettes, uncomplicated; Z20.822 Contact with and (suspected) exposure to COVID-19; Z89.412 Acquired absence of left great toe; Z99.3 Dependence on wheelchair; Z83.3 Family history of diabetes mellitus
CPT/HCPCS: 28805; 88300; J0690; J1100; J2250; J2405; J2704; J3010; J7120; U0003; J0171

== ENCOUNTER 2020-05-06 09:06 | Outpatient (CLI) | payer MEDICARE, MEDICAID, OTHER ==
[~2020-05-06 09:06] MED LIST changes: -CEFAZOLIN 1,000 MG ONE; +CLIN300C9 PO; -DEXAMETHASONE 4 MG/ML, 1ML ONE; -FENTANYL PF 100 MCG/2ML ONE; +HYDR-1067 PO; -MIDAZOLAM 1 MG/ML, 2ML ONE; -ONDANSETRON 2MG/ML, 2ML ONE; -PROPOFOL 10 MG/ML, 20ML ONE
== END 2020-05-06 23:59 | disposition home or self-care (01) ==
LOC: EDSEX → WOUND 09:06
PROVIDERS: ATTEND Nurse Practitioner Family
DX: T87.89 Other complications of amputation stump (principal); L89.516 Pressure-induced deep tissue damage of right ankle; L89.526 Pressure-induced deep tissue damage of left ankle; L97.412 Non-pressure chronic ulcer of right heel and midfoot with fat layer exposed; L97.312 Non-pressure chronic ulcer of right ankle with fat layer exposed; L97.512 Non-pressure chronic ulcer of other part of right foot with fat layer exposed; S90.414D Abrasion, right lesser toe(s), subsequent encounter; L03.115 Cellulitis of right lower limb; G90.09 Other idiopathic peripheral autonomic neuropathy; M86.672 Other chronic osteomyelitis, left ankle and foot; M86.671 Other chronic osteomyelitis, right ankle and foot; M86.172 Other acute osteomyelitis, left ankle and foot; M86.171 Other acute osteomyelitis, right ankle and foot; F32.9 Major depressive disorder, single episode, unspecified; F19.10 Other psychoactive substance abuse, uncomplicated; G82.20 Paraplegia, unspecified; I96 Gangrene, not elsewhere classified; F17.210 Nicotine dependence, cigarettes, uncomplicated; F12.10 Cannabis abuse, uncomplicated; Z90.49 Acquired absence of other specified parts of digestive tract; Z89.421 Acquired absence of other right toe(s); Z86.14 Personal history of Methicillin resistant Staphylococcus aureus infection; Z99.2 Dependence on renal dialysis; Z79.899 Other long term (current) drug therapy; X58.XXXD Exposure to other specified factors, subsequent encounter; Y83.5 Amputation of limb(s) as the cause of abnormal reaction of the patient, or of later complication, without mention of misadventure at the time of the procedure; Y92.238 Other place in hospital as the place of occurrence of the external cause
CPT/HCPCS: 97597

== ENCOUNTER 2020-05-13 09:25 | Outpatient (CLI) | payer MEDICARE, MEDICAID, OTHER | END 2020-05-13 23:59 | disposition home or self-care (01) | LOC: WOUND 09:25 | PROVIDERS: ATTEND Nurse Practitioner Family | DX: T87.89 Other complications of amputation stump (principal); L89.526 Pressure-induced deep tissue damage of left ankle; L89.516 Pressure-induced deep tissue damage of right ankle; L97.312 Non-pressure chronic ulcer of right ankle with fat layer exposed; L97.412 Non-pressure chronic ulcer of right heel and midfoot with fat layer exposed; L97.512 Non-pressure chronic ulcer of other part of right foot with fat layer exposed; S90.414D Abrasion, right lesser toe(s), subsequent encounter; L03.115 Cellulitis of right lower limb; G90.09 Other idiopathic peripheral autonomic neuropathy; M86.672 Other chronic osteomyelitis, left ankle and foot; M86.671 Other chronic osteomyelitis, right ankle and foot; M86.172 Other acute osteomyelitis, left ankle and foot; M86.171 Other acute osteomyelitis, right ankle and foot; F32.9 Major depressive disorder, single episode, unspecified; F19.10 Other psychoactive substance abuse, uncomplicated; G82.20 Paraplegia, unspecified; I96 Gangrene, not elsewhere classified; F17.210 Nicotine dependence, cigarettes, uncomplicated; F12.10 Cannabis abuse, uncomplicated; Z90.49 Acquired absence of other specified parts of digestive tract; Z89.421 Acquired absence of other right toe(s); Z86.14 Personal history of Methicillin resistant Staphylococcus aureus infection; Z99.2 Dependence on renal dialysis; Z79.899 Other long term (current) drug therapy; X58.XXXD Exposure to other specified factors, subsequent encounter; Y83.5 Amputation of limb(s) as the cause of abnormal reaction of the patient, or of later complication, without mention of misadventure at the time of the procedure | CPT/HCPCS: 97597 ==

== ENCOUNTER 2020-05-20 12:43 | Outpatient (CLI) | payer MEDICARE, MEDICAID, OTHER | END 2020-05-20 23:59 | disposition home or self-care (01) | LOC: WOUND 12:43 | PROVIDERS: ATTEND Nurse Practitioner Family | DX: T87.89 Other complications of amputation stump (principal); L89.526 Pressure-induced deep tissue damage of left ankle; L89.516 Pressure-induced deep tissue damage of right ankle; L97.312 Non-pressure chronic ulcer of right ankle with fat layer exposed; L97.412 Non-pressure chronic ulcer of right heel and midfoot with fat layer exposed; L97.512 Non-pressure chronic ulcer of other part of right foot with fat layer exposed; S90.414D Abrasion, right lesser toe(s), subsequent encounter; L03.115 Cellulitis of right lower limb; G90.09 Other idiopathic peripheral autonomic neuropathy; M86.672 Other chronic osteomyelitis, left ankle and foot; M86.671 Other chronic osteomyelitis, right ankle and foot; M86.172 Other acute osteomyelitis, left ankle and foot; M86.171 Other acute osteomyelitis, right ankle and foot; F32.9 Major depressive disorder, single episode, unspecified; F19.10 Other psychoactive substance abuse, uncomplicated; G82.20 Paraplegia, unspecified; I96 Gangrene, not elsewhere classified; L84 Corns and callosities; F17.210 Nicotine dependence, cigarettes, uncomplicated; F12.10 Cannabis abuse, uncomplicated; Z90.49 Acquired absence of other specified parts of digestive tract; Z89.421 Acquired absence of other right toe(s); Z86.14 Personal history of Methicillin resistant Staphylococcus aureus infection; Z99.2 Dependence on renal dialysis; Z79.899 Other long term (current) drug therapy; X58.XXXD Exposure to other specified factors, subsequent encounter; Y83.5 Amputation of limb(s) as the cause of abnormal reaction of the patient, or of later complication, without mention of misadventure at the time of the procedure | CPT/HCPCS: 97597; 97598 ==

== ENCOUNTER → 2020-05-27 | Outpatient (CLI) | payer MEDICARE, MEDICAID, OTHER | END | disposition home or self-care (01) | LOC: WOUND 08:00 | PROVIDERS: ATTEND Nurse Practitioner Family | DX: T87.89 Other complications of amputation stump (principal); L89.526 Pressure-induced deep tissue damage of left ankle; L89.516 Pressure-induced deep tissue damage of right ankle; L97.312 Non-pressure chronic ulcer of right ankle with fat layer exposed; L97.412 Non-pressure chronic ulcer of right heel and midfoot with fat layer exposed; L97.512 Non-pressure chronic ulcer of other part of right foot with fat layer exposed; S90.414D Abrasion, right lesser toe(s), subsequent encounter; L03.115 Cellulitis of right lower limb; G90.09 Other idiopathic peripheral autonomic neuropathy; M86.672 Other chronic osteomyelitis, left ankle and foot; M86.671 Other chronic osteomyelitis, right ankle and foot; M86.172 Other acute osteomyelitis, left ankle and foot; M86.171 Other acute osteomyelitis, right ankle and foot; F32.9 Major depressive disorder, single episode, unspecified; F19.10 Other psychoactive substance abuse, uncomplicated; G82.20 Paraplegia, unspecified; I96 Gangrene, not elsewhere classified; L84 Corns and callosities; F17.210 Nicotine dependence, cigarettes, uncomplicated; F12.10 Cannabis abuse, uncomplicated; Z90.49 Acquired absence of other specified parts of digestive tract; Z89.421 Acquired absence of other right toe(s); Z86.14 Personal history of Methicillin resistant Staphylococcus aureus infection; Z20.822 Contact with and (suspected) exposure to COVID-19; Z99.2 Dependence on renal dialysis; Z79.899 Other long term (current) drug therapy; X58.XXXD Exposure to other specified factors, subsequent encounter; Y83.5 Amputation of limb(s) as the cause of abnormal reaction of the patient, or of later complication, without mention of misadventure at the time of the procedure | CPT/HCPCS: 97597 ==

== ENCOUNTER → 2020-06-03 | Outpatient (CLI) | payer MEDICARE, MEDICAID, OTHER | END | disposition home or self-care (01) | LOC: WOUND 08:17 | PROVIDERS: ATTEND Nurse Practitioner Family | DX: T87.89 Other complications of amputation stump (principal); L89.526 Pressure-induced deep tissue damage of left ankle; L89.516 Pressure-induced deep tissue damage of right ankle; L97.312 Non-pressure chronic ulcer of right ankle with fat layer exposed; L97.412 Non-pressure chronic ulcer of right heel and midfoot with fat layer exposed; L97.512 Non-pressure chronic ulcer of other part of right foot with fat layer exposed; S90.414D Abrasion, right lesser toe(s), subsequent encounter; L03.115 Cellulitis of right lower limb; G90.09 Other idiopathic peripheral autonomic neuropathy; M86.672 Other chronic osteomyelitis, left ankle and foot; M86.671 Other chronic osteomyelitis, right ankle and foot; M86.172 Other acute osteomyelitis, left ankle and foot; M86.171 Other acute osteomyelitis, right ankle and foot; F32.9 Major depressive disorder, single episode, unspecified; F19.10 Other psychoactive substance abuse, uncomplicated; G82.20 Paraplegia, unspecified; I96 Gangrene, not elsewhere classified; L84 Corns and callosities; F17.210 Nicotine dependence, cigarettes, uncomplicated; F12.10 Cannabis abuse, uncomplicated; Z90.49 Acquired absence of other specified parts of digestive tract; Z89.421 Acquired absence of other right toe(s); Z86.14 Personal history of Methicillin resistant Staphylococcus aureus infection; Z20.822 Contact with and (suspected) exposure to COVID-19; Z99.2 Dependence on renal dialysis; Z79.899 Other long term (current) drug therapy; X58.XXXD Exposure to other specified factors, subsequent encounter; Y83.5 Amputation of limb(s) as the cause of abnormal reaction of the patient, or of later complication, without mention of misadventure at the time of the procedure | CPT/HCPCS: 97597 ==

== ENCOUNTER → 2020-06-10 | Outpatient (CLI) | payer MEDICARE, MEDICAID, OTHER | END | disposition home or self-care (01) | LOC: WOUND 08:52 | PROVIDERS: ATTEND Nurse Practitioner Family | DX: T87.89 Other complications of amputation stump (principal); L89.526 Pressure-induced deep tissue damage of left ankle; L89.516 Pressure-induced deep tissue damage of right ankle; L97.312 Non-pressure chronic ulcer of right ankle with fat layer exposed; L97.412 Non-pressure chronic ulcer of right heel and midfoot with fat layer exposed; L97.512 Non-pressure chronic ulcer of other part of right foot with fat layer exposed; S90.414D Abrasion, right lesser toe(s), subsequent encounter; L03.115 Cellulitis of right lower limb; G90.09 Other idiopathic peripheral autonomic neuropathy; M86.672 Other chronic osteomyelitis, left ankle and foot; M86.671 Other chronic osteomyelitis, right ankle and foot; M86.172 Other acute osteomyelitis, left ankle and foot; M86.171 Other acute osteomyelitis, right ankle and foot; F32.9 Major depressive disorder, single episode, unspecified; F19.10 Other psychoactive substance abuse, uncomplicated; G82.20 Paraplegia, unspecified; I96 Gangrene, not elsewhere classified; L84 Corns and callosities; F17.210 Nicotine dependence, cigarettes, uncomplicated; F12.10 Cannabis abuse, uncomplicated; Z90.49 Acquired absence of other specified parts of digestive tract; Z89.421 Acquired absence of other right toe(s); Z86.14 Personal history of Methicillin resistant Staphylococcus aureus infection; Z20.822 Contact with and (suspected) exposure to COVID-19; Z99.2 Dependence on renal dialysis; Z79.899 Other long term (current) drug therapy; X58.XXXD Exposure to other specified factors, subsequent encounter; Y83.5 Amputation of limb(s) as the cause of abnormal reaction of the patient, or of later complication, without mention of misadventure at the time of the procedure | CPT/HCPCS: 97597 ==

== ENCOUNTER 2020-06-17 08:54 | Outpatient (CLI) | payer MEDICARE, MEDICAID, OTHER | END 2020-06-17 23:59 | disposition home or self-care (01) | LOC: WOUND 08:54 | PROVIDERS: ATTEND Nurse Practitioner Family | DX: T87.89 Other complications of amputation stump (principal); L89.516 Pressure-induced deep tissue damage of right ankle; L97.312 Non-pressure chronic ulcer of right ankle with fat layer exposed; L97.412 Non-pressure chronic ulcer of right heel and midfoot with fat layer exposed; L97.512 Non-pressure chronic ulcer of other part of right foot with fat layer exposed; S90.414D Abrasion, right lesser toe(s), subsequent encounter; L03.115 Cellulitis of right lower limb; G90.09 Other idiopathic peripheral autonomic neuropathy; M86.672 Other chronic osteomyelitis, left ankle and foot; M86.671 Other chronic osteomyelitis, right ankle and foot; M86.172 Other acute osteomyelitis, left ankle and foot; M86.171 Other acute osteomyelitis, right ankle and foot; F32.9 Major depressive disorder, single episode, unspecified; F19.10 Other psychoactive substance abuse, uncomplicated; G82.20 Paraplegia, unspecified; I96 Gangrene, not elsewhere classified; L84 Corns and callosities; F17.210 Nicotine dependence, cigarettes, uncomplicated; F12.10 Cannabis abuse, uncomplicated; Z90.49 Acquired absence of other specified parts of digestive tract; Z89.421 Acquired absence of other right toe(s); Z86.14 Personal history of Methicillin resistant Staphylococcus aureus infection; Z20.822 Contact with and (suspected) exposure to COVID-19; Z99.2 Dependence on renal dialysis; Z79.899 Other long term (current) drug therapy; Y83.5 Amputation of limb(s) as the cause of abnormal reaction of the patient, or of later complication, without mention of misadventure at the time of the procedure; X58.XXXD Exposure to other specified factors, subsequent encounter | CPT/HCPCS: 97597 ==

== ENCOUNTER 2020-07-01 08:30 | Outpatient (CLI) | payer MEDICARE, MEDICAID, OTHER ==
[~2020-07-01 08:30] MED LIST changes: -HYDR-1067 PO; +HYDR-2214 PO; +SULF-23 PO; -SULF1TAB24 PO
== END 2020-07-01 23:59 | disposition home or self-care (01) ==
LOC: WOUND 08:30
PROVIDERS: ATTEND Nurse Practitioner Family
DX: L89.516 Pressure-induced deep tissue damage of right ankle (principal); L97.512 Non-pressure chronic ulcer of other part of right foot with fat layer exposed; L97.412 Non-pressure chronic ulcer of right heel and midfoot with fat layer exposed; S90.414D Abrasion, right lesser toe(s), subsequent encounter; L03.115 Cellulitis of right lower limb; G90.09 Other idiopathic peripheral autonomic neuropathy; M86.672 Other chronic osteomyelitis, left ankle and foot; M86.171 Other acute osteomyelitis, right ankle and foot; M86.172 Other acute osteomyelitis, left ankle and foot; F32.9 Major depressive disorder, single episode, unspecified; F19.10 Other psychoactive substance abuse, uncomplicated; G82.20 Paraplegia, unspecified; I96 Gangrene, not elsewhere classified; L84 Corns and callosities; F17.210 Nicotine dependence, cigarettes, uncomplicated; F12.10 Cannabis abuse, uncomplicated; Z90.49 Acquired absence of other specified parts of digestive tract; Z89.421 Acquired absence of other right toe(s); Z86.14 Personal history of Methicillin resistant Staphylococcus aureus infection; Z20.822 Contact with and (suspected) exposure to COVID-19; Z99.2 Dependence on renal dialysis; Z79.899 Other long term (current) drug therapy; X58.XXXD Exposure to other specified factors, subsequent encounter
CPT/HCPCS: 97597

== ENCOUNTER → 2020-07-08 | Outpatient (CLI) | payer MEDICARE, MEDICAID, OTHER | END | disposition home or self-care (01) | LOC: WOUND 09:00 | PROVIDERS: ATTEND Nurse Practitioner Family | DX: T87.89 Other complications of amputation stump (principal); L89.516 Pressure-induced deep tissue damage of right ankle; L97.312 Non-pressure chronic ulcer of right ankle with fat layer exposed; L97.412 Non-pressure chronic ulcer of right heel and midfoot with fat layer exposed; L03.115 Cellulitis of right lower limb; S90.414D Abrasion, right lesser toe(s), subsequent encounter; G90.09 Other idiopathic peripheral autonomic neuropathy; M86.672 Other chronic osteomyelitis, left ankle and foot; M86.671 Other chronic osteomyelitis, right ankle and foot; M86.171 Other acute osteomyelitis, right ankle and foot; M86.172 Other acute osteomyelitis, left ankle and foot; F32.9 Major depressive disorder, single episode, unspecified; F19.10 Other psychoactive substance abuse, uncomplicated; G82.20 Paraplegia, unspecified; I96 Gangrene, not elsewhere classified; L84 Corns and callosities; F17.210 Nicotine dependence, cigarettes, uncomplicated; F12.10 Cannabis abuse, uncomplicated; Z90.49 Acquired absence of other specified parts of digestive tract; Z89.421 Acquired absence of other right toe(s); Z86.14 Personal history of Methicillin resistant Staphylococcus aureus infection; Z20.822 Contact with and (suspected) exposure to COVID-19; Z99.2 Dependence on renal dialysis; Z79.899 Other long term (current) drug therapy; X58.XXXD Exposure to other specified factors, subsequent encounter; Y83.5 Amputation of limb(s) as the cause of abnormal reaction of the patient, or of later complication, without mention of misadventure at the time of the procedure | CPT/HCPCS: 97597 ==

== ENCOUNTER → 2020-07-15 | Outpatient (CLI) | payer MEDICARE, MEDICAID, OTHER | END | disposition home or self-care (01) | LOC: WOUND 09:00 | PROVIDERS: ATTEND Nurse Practitioner Family | DX: L89.516 Pressure-induced deep tissue damage of right ankle (principal); L97.412 Non-pressure chronic ulcer of right heel and midfoot with fat layer exposed; L03.115 Cellulitis of right lower limb; G90.09 Other idiopathic peripheral autonomic neuropathy; M86.672 Other chronic osteomyelitis, left ankle and foot; M86.671 Other chronic osteomyelitis, right ankle and foot; M86.171 Other acute osteomyelitis, right ankle and foot; M86.172 Other acute osteomyelitis, left ankle and foot; F32.9 Major depressive disorder, single episode, unspecified; F19.10 Other psychoactive substance abuse, uncomplicated; G82.20 Paraplegia, unspecified; I96 Gangrene, not elsewhere classified; L84 Corns and callosities; F17.210 Nicotine dependence, cigarettes, uncomplicated; F12.10 Cannabis abuse, uncomplicated; Z90.49 Acquired absence of other specified parts of digestive tract; Z89.421 Acquired absence of other right toe(s); Z86.14 Personal history of Methicillin resistant Staphylococcus aureus infection; Z20.822 Contact with and (suspected) exposure to COVID-19; Z99.2 Dependence on renal dialysis; Z79.899 Other long term (current) drug therapy | CPT/HCPCS: 97597 ==

== ENCOUNTER 2020-07-29 09:17 | Outpatient (CLI) | payer MEDICARE, MEDICAID, OTHER | END 2020-07-29 23:59 | disposition home or self-care (01) | LOC: WOUND 09:17 | PROVIDERS: ATTEND Internal Medicine Infectious Disease | DX: T87.89 Other complications of amputation stump (principal); L89.516 Pressure-induced deep tissue damage of right ankle; L97.412 Non-pressure chronic ulcer of right heel and midfoot with fat layer exposed; L97.312 Non-pressure chronic ulcer of right ankle with fat layer exposed; S90.821D Blister (nonthermal), right foot, subsequent encounter; L03.115 Cellulitis of right lower limb; G90.09 Other idiopathic peripheral autonomic neuropathy; M86.672 Other chronic osteomyelitis, left ankle and foot; M86.671 Other chronic osteomyelitis, right ankle and foot; M86.172 Other acute osteomyelitis, left ankle and foot; M86.171 Other acute osteomyelitis, right ankle and foot; F32.9 Major depressive disorder, single episode, unspecified; F19.10 Other psychoactive substance abuse, uncomplicated; G82.20 Paraplegia, unspecified; I96 Gangrene, not elsewhere classified; L84 Corns and callosities; F17.210 Nicotine dependence, cigarettes, uncomplicated; F12.10 Cannabis abuse, uncomplicated; Z90.49 Acquired absence of other specified parts of digestive tract; Z89.421 Acquired absence of other right toe(s); Z86.14 Personal history of Methicillin resistant Staphylococcus aureus infection; Z20.822 Contact with and (suspected) exposure to COVID-19; Z99.2 Dependence on renal dialysis; Z79.899 Other long term (current) drug therapy; X58.XXXD Exposure to other specified factors, subsequent encounter; Y83.5 Amputation of limb(s) as the cause of abnormal reaction of the patient, or of later complication, without mention of misadventure at the time of the procedure | CPT/HCPCS: 97597 ==

== ENCOUNTER → 2020-08-05 | Outpatient (CLI) | payer MEDICARE, MEDICAID, OTHER | END | disposition home or self-care (01) | LOC: WOUND 09:56 | PROVIDERS: ATTEND Internal Medicine Cardiovascular Disease | DX: L89.516 Pressure-induced deep tissue damage of right ankle (principal); L97.412 Non-pressure chronic ulcer of right heel and midfoot with fat layer exposed; L97.312 Non-pressure chronic ulcer of right ankle with fat layer exposed; S90.821D Blister (nonthermal), right foot, subsequent encounter; L03.115 Cellulitis of right lower limb; G90.09 Other idiopathic peripheral autonomic neuropathy; M86.672 Other chronic osteomyelitis, left ankle and foot; M86.671 Other chronic osteomyelitis, right ankle and foot; M86.171 Other acute osteomyelitis, right ankle and foot; M86.172 Other acute osteomyelitis, left ankle and foot; F32.9 Major depressive disorder, single episode, unspecified; F19.10 Other psychoactive substance abuse, uncomplicated; G82.20 Paraplegia, unspecified; I96 Gangrene, not elsewhere classified; L84 Corns and callosities; F17.210 Nicotine dependence, cigarettes, uncomplicated; F12.10 Cannabis abuse, uncomplicated; Z90.49 Acquired absence of other specified parts of digestive tract; Z89.421 Acquired absence of other right toe(s); Z86.14 Personal history of Methicillin resistant Staphylococcus aureus infection; Z20.822 Contact with and (suspected) exposure to COVID-19; Z99.2 Dependence on renal dialysis; Z79.899 Other long term (current) drug therapy; X58.XXXD Exposure to other specified factors, subsequent encounter | CPT/HCPCS: G0463 ==

== ENCOUNTER → 2020-08-12 | Outpatient (CLI) | payer MEDICARE, MEDICAID, OTHER | END | disposition home or self-care (01) | LOC: WOUND 08:57 | PROVIDERS: ATTEND Nurse Practitioner Family | DX: L89.516 Pressure-induced deep tissue damage of right ankle (principal); L97.412 Non-pressure chronic ulcer of right heel and midfoot with fat layer exposed; L97.312 Non-pressure chronic ulcer of right ankle with fat layer exposed; G90.09 Other idiopathic peripheral autonomic neuropathy; M86.672 Other chronic osteomyelitis, left ankle and foot; M86.671 Other chronic osteomyelitis, right ankle and foot; M86.171 Other acute osteomyelitis, right ankle and foot; M86.172 Other acute osteomyelitis, left ankle and foot; F32.9 Major depressive disorder, single episode, unspecified; F19.10 Other psychoactive substance abuse, uncomplicated; G82.20 Paraplegia, unspecified; I96 Gangrene, not elsewhere classified; L84 Corns and callosities; F17.210 Nicotine dependence, cigarettes, uncomplicated; F12.10 Cannabis abuse, uncomplicated; Z90.49 Acquired absence of other specified parts of digestive tract; Z89.421 Acquired absence of other right toe(s); Z86.14 Personal history of Methicillin resistant Staphylococcus aureus infection; Z20.822 Contact with and (suspected) exposure to COVID-19; Z99.2 Dependence on renal dialysis; Z79.899 Other long term (current) drug therapy | CPT/HCPCS: 97597 ==

== ENCOUNTER → 2020-08-19 | Outpatient (CLI) | payer MEDICARE, MEDICAID, OTHER | END | disposition home or self-care (01) | LOC: WOUND 09:38 | PROVIDERS: ATTEND Nurse Practitioner Family | DX: L89.516 Pressure-induced deep tissue damage of right ankle (principal); L97.412 Non-pressure chronic ulcer of right heel and midfoot with fat layer exposed; L97.312 Non-pressure chronic ulcer of right ankle with fat layer exposed; G90.09 Other idiopathic peripheral autonomic neuropathy; M86.672 Other chronic osteomyelitis, left ankle and foot; M86.671 Other chronic osteomyelitis, right ankle and foot; M86.171 Other acute osteomyelitis, right ankle and foot; M86.172 Other acute osteomyelitis, left ankle and foot; F32.9 Major depressive disorder, single episode, unspecified; G82.20 Paraplegia, unspecified; I96 Gangrene, not elsewhere classified; L84 Corns and callosities; F17.210 Nicotine dependence, cigarettes, uncomplicated; F19.10 Other psychoactive substance abuse, uncomplicated; F12.10 Cannabis abuse, uncomplicated; Z90.49 Acquired absence of other specified parts of digestive tract; Z89.421 Acquired absence of other right toe(s); Z89.432 Acquired absence of left foot; Z86.14 Personal history of Methicillin resistant Staphylococcus aureus infection; Z20.822 Contact with and (suspected) exposure to COVID-19; Z99.2 Dependence on renal dialysis; Z79.899 Other long term (current) drug therapy | CPT/HCPCS: 97597 ==

== ENCOUNTER 2020-08-26 08:05 | Outpatient (CLI) | payer MEDICARE, MEDICAID, OTHER | END 2020-08-26 23:59 | disposition home or self-care (01) | LOC: WOUND 08:05 | PROVIDERS: ATTEND Internal Medicine Infectious Disease | DX: L89.516 Pressure-induced deep tissue damage of right ankle (principal); L97.412 Non-pressure chronic ulcer of right heel and midfoot with fat layer exposed; I96 Gangrene, not elsewhere classified; G90.09 Other idiopathic peripheral autonomic neuropathy; M86.672 Other chronic osteomyelitis, left ankle and foot; M86.671 Other chronic osteomyelitis, right ankle and foot; M86.171 Other acute osteomyelitis, right ankle and foot; M86.172 Other acute osteomyelitis, left ankle and foot; G82.20 Paraplegia, unspecified; F32.9 Major depressive disorder, single episode, unspecified; L84 Corns and callosities; F19.10 Other psychoactive substance abuse, uncomplicated; F12.10 Cannabis abuse, uncomplicated; F17.210 Nicotine dependence, cigarettes, uncomplicated; Z90.49 Acquired absence of other specified parts of digestive tract; Z89.421 Acquired absence of other right toe(s); Z89.432 Acquired absence of left foot; Z86.14 Personal history of Methicillin resistant Staphylococcus aureus infection; Z20.822 Contact with and (suspected) exposure to COVID-19; Z99.2 Dependence on renal dialysis; Z79.899 Other long term (current) drug therapy | CPT/HCPCS: 97597 ==

== ENCOUNTER 2020-09-02 08:38 | Outpatient (CLI) | payer MEDICARE, MEDICAID, OTHER | END 2020-09-02 23:59 | disposition home or self-care (01) | LOC: WOUND 08:38 | PROVIDERS: ATTEND Internal Medicine Infectious Disease | DX: L97.412 Non-pressure chronic ulcer of right heel and midfoot with fat layer exposed (principal); I96 Gangrene, not elsewhere classified; G90.09 Other idiopathic peripheral autonomic neuropathy; M86.672 Other chronic osteomyelitis, left ankle and foot; M86.671 Other chronic osteomyelitis, right ankle and foot; M86.171 Other acute osteomyelitis, right ankle and foot; M86.172 Other acute osteomyelitis, left ankle and foot; G82.20 Paraplegia, unspecified; F32.9 Major depressive disorder, single episode, unspecified; L84 Corns and callosities; F19.10 Other psychoactive substance abuse, uncomplicated; F12.10 Cannabis abuse, uncomplicated; F17.210 Nicotine dependence, cigarettes, uncomplicated; Z90.49 Acquired absence of other specified parts of digestive tract; Z89.421 Acquired absence of other right toe(s); Z89.432 Acquired absence of left foot; Z86.14 Personal history of Methicillin resistant Staphylococcus aureus infection; Z20.822 Contact with and (suspected) exposure to COVID-19; Z99.2 Dependence on renal dialysis; Z79.899 Other long term (current) drug therapy | CPT/HCPCS: 97597 ==

== ENCOUNTER → 2020-09-09 | Outpatient (CLI) | payer MEDICARE, MEDICAID, OTHER | END | disposition home or self-care (01) | LOC: WOUND 09:15 | PROVIDERS: ATTEND Nurse Practitioner Family | DX: L97.412 Non-pressure chronic ulcer of right heel and midfoot with fat layer exposed (principal); L89.516 Pressure-induced deep tissue damage of right ankle; I96 Gangrene, not elsewhere classified; G90.09 Other idiopathic peripheral autonomic neuropathy; M86.672 Other chronic osteomyelitis, left ankle and foot; M86.671 Other chronic osteomyelitis, right ankle and foot; M86.171 Other acute osteomyelitis, right ankle and foot; M86.172 Other acute osteomyelitis, left ankle and foot; G82.20 Paraplegia, unspecified; F32.9 Major depressive disorder, single episode, unspecified; L84 Corns and callosities; F19.10 Other psychoactive substance abuse, uncomplicated; F12.10 Cannabis abuse, uncomplicated; F17.210 Nicotine dependence, cigarettes, uncomplicated; Z90.49 Acquired absence of other specified parts of digestive tract; Z89.421 Acquired absence of other right toe(s); Z89.432 Acquired absence of left foot; Z86.14 Personal history of Methicillin resistant Staphylococcus aureus infection; Z20.822 Contact with and (suspected) exposure to COVID-19; Z99.2 Dependence on renal dialysis; Z79.899 Other long term (current) drug therapy | CPT/HCPCS: 97597 ==

== ENCOUNTER → 2020-09-23 | Outpatient (CLI) | payer MEDICARE, MEDICAID, OTHER | END | disposition home or self-care (01) | LOC: WOUND 08:41 | PROVIDERS: ATTEND Nurse Practitioner Family | DX: L97.412 Non-pressure chronic ulcer of right heel and midfoot with fat layer exposed (principal); L89.516 Pressure-induced deep tissue damage of right ankle; I96 Gangrene, not elsewhere classified; G90.09 Other idiopathic peripheral autonomic neuropathy; M86.672 Other chronic osteomyelitis, left ankle and foot; M86.671 Other chronic osteomyelitis, right ankle and foot; M86.171 Other acute osteomyelitis, right ankle and foot; M86.172 Other acute osteomyelitis, left ankle and foot; G82.20 Paraplegia, unspecified; F32.9 Major depressive disorder, single episode, unspecified; L84 Corns and callosities; F19.10 Other psychoactive substance abuse, uncomplicated; F12.10 Cannabis abuse, uncomplicated; F17.210 Nicotine dependence, cigarettes, uncomplicated; Z90.49 Acquired absence of other specified parts of digestive tract; Z89.421 Acquired absence of other right toe(s); Z89.432 Acquired absence of left foot; Z86.14 Personal history of Methicillin resistant Staphylococcus aureus infection; Z20.822 Contact with and (suspected) exposure to COVID-19; Z99.2 Dependence on renal dialysis; Z79.899 Other long term (current) drug therapy | CPT/HCPCS: G0463 ==